=== PATIENT | female | born 1930 | race Caucasian/White ===

== ENCOUNTER 2018-07-28 09:52 | Observation (INO) ==
--- NOTE | 2018-07-28 10:28 | ERNOTE ---
Dizziness ER Record Date of Service: 07/28/18 Presenting Symptoms: dizziness Time Seen by Provider: 07/28/18 10:27 Source: patient, RN notes reviewed Exam Limitations: clinical condition Immunizations: IMMUNIZATION HX Immunizations Up to Date No History of Influenza Vaccine Yes Hx Pneumococcal Vaccination Yes Allergies/Adverse Reactions: Allergies Allergy/AdvReac Type Severity Reaction Status Date / Time ferrous sulfate Allergy Unknown Verified 07/28/18 09:59 amlodipine besylate AdvReac Mild TIRED Verified 07/28/18 09:59 [From Norvasc] aspirin AdvReac Mild FEELS LIKE Verified 07/28/18 09:59 "SHADE PULLED DOWN OVER EYES" diltiazem AdvReac Mild HOT Verified 07/28/18 09:59 FLASHES, DIZZY doxycycline AdvReac Mild Headache Verified 07/28/18 09:59 hydralazine [Hydralazine] AdvReac Mild "FELT BAD" Verified 07/28/18 09:59 hydrochlorothiazide AdvReac Mild "SICK" Verified 07/28/18 09:59 losartan potassium AdvReac Mild Headache Verified 07/28/18 09:59 [From Hyzaar] minoxidil AdvReac Mild "FELT REAL Verified 07/28/18 09:59 BAD" nabumetone [From Relafen] AdvReac Mild Nausea Verified 07/28/18 09:59 ondansetron HCl AdvReac Mild AKATHISIA Verified 07/28/18 09:59 [From Zofran (as hydrochloride)] oxaprozin [From Daypro] AdvReac Mild "ILL" Verified 07/28/18 09:59 promethazine HCl AdvReac Mild AKATHISIA Verified 07/28/18 09:59 [From Phenergan] SER-AP-ES AdvReac Mild "ILL" Uncoded 07/28/18 09:59 Home Medications: HOME MEDICATIONS Calcium Carbonate [Tums] 500 mg PO DAILY #30 tab.chew 12/24/14 [Last Taken Unknown] Furosemide [Lasix] 40 mg PO DAILY #30 tab 12/24/14 [Last Taken Unknown] Irbesartan [Avapro] 300 mg PO HS #30 tab 12/24/14 [Last Taken 05/20/15 07:00] Levothyroxine Sodium [Synthroid] 50 mcg PO DAILY #30 tab 12/24/14 [Last Taken Unknown] Metoprolol Tartrate [Lopressor] 100 mg PO BID #60 tab 12/24/14 [Last Taken 06/03/15 07:00] glipiZIDE [Glipizide] 10 mg PO DAILY #30 tab 12/24/14 [Last Taken Unknown] Ascorbic Acid [Vitamin C] 500 mg PO DAILY 05/10/15 [Last Taken Unknown] Blood Sugar Diagnostic, Drum [Accu-Chek Compact] 1 ea MC DAILY 05/10/15 [Last Taken Unknown] Calcium/Cranberry Fruit [Cranberry 400 mg Caplet] 2 ea PO DAILY 05/10/15 [Last Taken Unknown] Cholecalciferol (Vitamin D3) [Vitamin D3] 6,000 unit PO DAILY 05/10/15 [Last Taken Unknown] Cinnamon Bark [Cinnamon] 4,000 mg PO DAILY 05/10/15 [Last Taken Unknown] Fexofenadine/Pseudoephedrine [Angella-D 24 Hour Tablet] 1 ea PO DAILY 05/10/15 [Last Taken Unknown] Garlic 200 mg PO DAILY 05/10/15 [Last Taken Unknown] Glucosamine/D3/Boswellia Veronica [Osteo Bi-Flex Caplet] 2 ea PO DAILY 05/10/15 [Last Taken Unknown] Melatonin [Melatin] 3 mg PO HS 05/10/15 [Last Taken Unknown] Multivitamins [Multivitamin Naldo] 1 cap PO DAILY 05/10/15 [Last Taken Unknown] Simvastatin [Zocor] 40 mg PO DAILY 05/10/15 [Last Taken Unknown] Vitamin E 400 unit PO DAILY 05/10/15 [Last Taken Unknown] blood sugar diagnostic strips See Dose Instructions .ROUTE .MEDSUPPLY #100 ea 04/27/18 [Last Taken Unknown] lancets 28 gauge See Dose Instructions .ROUTE .MEDSUPPLY #100 ea 04/27/18 [Last Taken Unknown] prazosin 5 mg capsule 10 mg PO BID #360 cap 06/25/18 [Last Taken Unknown] Glucosamine/D3/Boswellia Veronica [Osteo Bi-Flex Tablet] 2 ea PO DAILY 07/28/18 [Last Taken Unknown] - History of Present Illness Narrative: Katie is a 88 year old female brought to the ED by ambulance from home for severe dizziness. This began abruptly at 0100 when she was putting sheets on her bed. She was unable to lay down due to the dizziness and sat on the side of her bed all night. She also started vomiting at some point during the night. She was given Zofran IV by EMS without improvement. She reports having vertigo even at rest. Her blood pressure was 224/92 on arrival. She has not been able to take any of her home medications due to the vomiting. She reports feeling fine yesterday. Date (Duration): 07/28/18 Time (Timing): 01:00 Timing and Duration: sudden onset, still present, constant Severity: max: severe Severity: currently: severe Associated Symptoms: Present: nausea, vomiting. Absent: ringing/roaring in ear, ear pain, headache Sense of movement: Present: spinning Decreased ability to stand/walk:: Present: cannot walk Usually:: Present: walks w/o assistance Modifying Factors - (Improves): Reports: nothing Modifying Factors - (Worsens): Reports: nothing Prior Treament: Denies: recently seen, similar symptoms before Review of Systems - Review of Systems Constitutional: Absent: recent illness, fever, chills EYE: Absent: eye pain, vision changes ENT: Absent: ear pain, nose congestion, sore throat Respiratory: Absent: shortness of breath, cough Cardiology: Present: edema - lower legs and feet after being dependent all night. Absent: chest pain, palpitations, syncope Gastrointestinal/Abdominal: Present: nausea, vomiting. Absent: diarrhea, abdominal pain Genitourinary: Present: no symptoms reported Musculoskeletal: Absent: muscle pain, neck pain Skin: Absent: rash, lesions Neurological: Present: dizziness/light-headedness. Absent: headache Endocrine: Present: no symptoms reported Hematologic/Lymphatic: Absent: easy bruising, easy bleeding Psych: Present: no symptoms reported Medical History (Last Reviewed 07/28/18 @ 13:02 by Gali Dunaway NP) Tremor (Chronic) Onset Date: ~07/07/10 Hypothyroidism (Chronic) Onset Date: Unknown Type 2 diabetes mellitus without complications (Chronic) Onset Date: Unknown Mitral regurgitation (Chronic) Onset Date: 07/14/11 Mild to moderate mitral regurgitation per ECHO obtained on 07/14/2011. CHF (congestive heart failure) (Chronic) Onset Date: 07/17/11 Arthritis Onset Date: Unknown Essential (primary) hypertension Onset Date: Unknown White coat syndrome with hypertension Onset Date: Unknown Hyperlipidemia Onset Date: Unknown Eczema Onset Date: Unknown GERD (gastroesophageal reflux disease) Onset Date: Unknown Surgical History: Surgical History (Last Reviewed 07/28/18 @ 13:02 by Gali Dunaway NP) History of breast biopsy Onset Date: ~1963 History of cataract surgery Onset Date: ~2014 left: 04/2015 Dr. Hurley right: 06/2015 Dr. Hurley History of colonoscopy Onset Date: ~200810/08/20042006 History of dilation and curettage Onset Date: ~1974 1965, 1974 positive endometrial biopsy History of esophagogastroduodenoscopy (EGD) Onset Date: 10/08/04 History of knee joint replacement Onset Date: Unknown Family History: Family History (Last Reviewed 07/28/18 @ 13:02 by Gali Dunaway NP) Sister Hypertension Mother Hypertension Father Hypertension Brother Hypertension Daughter , age 56 Colon cancer Social History: Preferred Language French Do you have any christianity or No cultural preference? Smoking Status Never smoker Have you smoked in the past 12 No months Do you dip or chew tobacco No Abuse History No History of abuse Psych History No pertinent hx Alcohol Use none Drug Use none (Last Updated 02/24/18 @ 22:03 by SARAH Bahena) No Social History Section defined Physical Exam - Physical Exam General Appearance: Present: wd/wn, alert, moderate distress Head Exam: Present: normal inspection, no evidence of injury Eye Exam: Normal inspection: bilateral Ears, Nose, Throat: Present: normal ENT inspection, normal pharynx Neck: Present: normal inspection, nontender, supple Respiratory: Present: no respiratory distress, normal breath sounds, no accessory muscle use, lungs clear Cardiovascular/Chest: Present: regular rate, rhythm, no murmur, normal peripheral pulses Peripheral Pulses: N=norm/S=strong/W=weak/B=bound/A=absent: Dorsalis-pedis (R): Normal, Dorsalis-pedis (L): Normal Gastrointestinal/Abdominal: Present: nontender, nondistended, soft Extremity Exam: Present: non-tender, pedal edema - mild Neurological Exam: Present: alert, oriented, normal mood/affect, no motor/sensory deficits Skin Exam: Present: warm/dry, pallor Progress - Results and Orders Patient's Lab Results:: I have reviewed the patient's lab results. - Vital Signs Patient's Vital Signs:: I have reviewed the patient's vital signs. Vital Signs: Vital Signs 07/28/18 09:53 07/28/18 10:01 Temperature 36.4 C Pulse Rate 85 85 Respiratory Rate 25 H Blood Pressure 224/92 H O2 Sat by Pulse Oximetry 96 - EKG EKG: NSR, nonspecific ST T wave changes EKG read: Reviewed by me - CT/Ultrasound CT/Ultrasound Narrative: Head CT demonstrates no acute intracranial process - Progress/Reassessment Chief Complaint: Dizziness Progress:: Improved Plan - Plan Plan: Vertigo and vomiting persisted after Zofran given by EMS. Compazine was given with relief of the vomiting and improvement in the vertigo. Her elevated blood pressure persisted and Labatolol 10 mg was given IV. Her BP is currently 164/70. It is unclear if the vertigo caused the elevated BP, or if the BP elevation lead to the vertigo. Dr. Novoa is the patient's PCP. He was contacted and will admit the patient to observation status for further monitoring. Departure Clinical Impression: Vertigo Vomiting Qualifiers: Vomiting type: unspecified Vomiting Intractability: non-intractable Nausea presence: with nausea Qualified Code(s): R11.2 - Nausea with vomiting, unspecified Hypertension Qualifiers: Hypertension type: unspecified Qualified Code(s): I10 - Essential (primary) hypertension - Departure Disposition: Still a patient Condition: Stable Referrals: Bishop Novoa DO [Primary Care Provider] -
[2018-07-28] MEDS ORDERED: PROCHLORPERAZINE EDISYLATE 5 MG/ML VIAL IV ONE (10:32)
[2018-07-28 10:50] LABS: Hematocrit 35.2 % (37.0-47.0); Hemoglobin 11.7 gm/dL (12.5-16.0); Mean Cell Volume 94.6 fl (78-100); Mean Corpuscular Hemoglobin 31.5 pg (27-31); Mean Corpuscular Hgb Conc 33.2 g/dl (32-36); Mean Platelet Volume 11.1 fl (8-12.5); Neutrophil # 9.3 K/mm3 (1.3-6.0); Neutrophil % 91.9 % (42-75.0); Platelet Count 151 K/mm3 (150-450); Red Blood Count 3.72 M/mm3 (4.2-5.4); Red Cell Distribution Width 12.3 % (11.5-14.0); White Blood Count 10.2 K/mm3 (4.0-10.5)
[2018-07-28 11:11] LABS: Albumin * 3.6 gm/dl (3.4-5.0); Anion Gap 14.5 mmol/L (6.8-13.8); Bilirubin, Total 0.6 mg/dL (0.0-1.1); Ca. Corrected For Albumin 10.3 mg/dL (8.4-10.2); Calcium * 10.3 mg/dL (7.9-10.9); Carbon Dioxide 27.6 mmol/L (24-32.6); Potassium 4.1 mmol/L (3.4-4.6); Total Protein 7.3 gm/dL (6.2-8.2)
[2018-07-28] MEDS ORDERED: NORMAL SALINE 1,000 ML IV ONE (11:13)
[2018-07-28] MEDS ORDERED: LABETALOL HCL 5 MG/ML VIAL IV ONE (11:13)
[2018-07-28 14:19] LABS: Urine Bilirubin Negative (NEGATIVE); Urine Ketone 15 mg/dL (NEGATIVE); Urine Nitrite Negative (NEGATIVE); Urine Protein 100 mg/dL (NEGATIVE); Urine Specific Gravity 1.025 SP.GR. (1.005-1.010); Urine Urobilinogen Normal (NORMAL)
[2018-07-28 14:35] LABS: Urine Appearance Clear (CLEAR); Urine Bacteria TRACE; Urine Blood 5 /ul (NEGATIVE); Urine Color Yellow; Urine RBC TRACE /hpf (0-5); Urine WBC None Seen /hpf (0-5)
--- NOTE | 2018-07-28 21:14 | HP ---
Chief Complaint - Chief Complaint Date of Service: 07/28/18 Time of Service: 21:13 Chief Complaint: Vertigo History of Present Illness: Katie woke up this morning with extreme vertigo. She sat up on her bed and refused to move for hours because she was scared of getting sick. EMS was contacted and they had to carry her as she was unable to walk due to the vertigo. She was brought to [facility] ER For evaluation. She continued to have severe vertigo until given compazine and labetolol for severe hypertension with systolic >200. Vertigo resolved and blood pressure improved. She felt uneasy going home and the ER contacted medicine to observe patient for monitoring of blood pressure and return of vertigo. Katie denies any recent change in activity, medications. or diet. Medical History (Last Reviewed 07/28/18 @ 15:33 by April Kimble RN) Tremor (Chronic) Onset Date: ~07/07/10 Hypothyroidism (Chronic) Onset Date: Unknown Type 2 diabetes mellitus without complications (Chronic) Onset Date: Unknown Mitral regurgitation (Chronic) Onset Date: 07/14/11 Mild to moderate mitral regurgitation per ECHO obtained on 07/14/2011. CHF (congestive heart failure) (Chronic) Onset Date: 07/17/11 Arthritis Onset Date: Unknown Essential (primary) hypertension Onset Date: Unknown White coat syndrome with hypertension Onset Date: Unknown Hyperlipidemia Onset Date: Unknown Eczema Onset Date: Unknown GERD (gastroesophageal reflux disease) Onset Date: Unknown Surgical History: Surgical History (Last Reviewed 07/28/18 @ 15:33 by April Kimble RN) History of breast biopsy Onset Date: ~1963 History of cataract surgery Onset Date: ~2014 left: 04/2015 Dr. Hurley right: 06/2015 Dr. Hurley History of colonoscopy Onset Date: ~200810/08/20042006 History of dilation and curettage Onset Date: ~1974 1965, 1974 positive endometrial biopsy History of esophagogastroduodenoscopy (EGD) Onset Date: 10/08/04 History of knee joint replacement Onset Date: Unknown Family History: Family History (Last Reviewed 07/28/18 @ 15:33 by April Kimble RN) Sister Hypertension Mother Hypertension Father Hypertension Brother Hypertension Daughter , age 56 Colon cancer Social History: Patient Lives/Resources Home Utilized Occupation retired Preferred Language Hungarian Do you have any baptist or Yes: Cheondoism cultural preference? Smoking Status Never smoker Have you smoked in the past 12 No months Do you dip or chew tobacco No Abuse History No History of abuse Psych History No pertinent hx Alcohol Use none Drug Use none (Last Updated 02/24/18 @ 22:03 by SARAH Bahena) No Social History Section defined Review Of Systems (GEN) - Review of Systems Generalized/Overall Review: Absent: Weakness, Chills, Fever EENTM: Present: Other - Vertigo Respiratory: Absent: Cough, Shortness of Breath Cardiac: Absent: Chest Pain, Edema Abdominal: Present: Nausea. Absent: Vomiting, Abdominal Pain, Constipation, Diarrhea Genitourinary: Present: No Symptoms Reported Musculoskeletal: Present: No Symptoms Reported Neurological: Present: No Symptoms Reported Skin: Present: No Symptoms Reported Immunizations: IMMUNIZATION HX Immunizations Up to Date No History of Influenza Vaccine Yes Hx Pneumococcal Vaccination Yes Allergies/Adverse Reactions: Allergies Allergy/AdvReac Type Severity Reaction Status Date / Time ferrous sulfate Allergy Unknown Verified 08/03/18 10:19 amlodipine besylate AdvReac Mild TIRED Verified 08/03/18 10:19 [From Norvasc] aspirin AdvReac Mild FEELS LIKE Verified 08/03/18 10:19 "SHADE PULLED DOWN OVER EYES" diltiazem AdvReac Mild HOT Verified 08/03/18 10:19 FLASHES, DIZZY doxycycline AdvReac Mild Headache Verified 08/03/18 10:19 hydralazine [Hydralazine] AdvReac Mild "FELT BAD" Verified 08/03/18 10:19 hydrochlorothiazide AdvReac Mild "SICK" Verified 08/03/18 10:19 losartan potassium AdvReac Mild Headache Verified 08/03/18 10:19 [From Hyzaar] minoxidil AdvReac Mild "FELT REAL Verified 08/03/18 10:19 BAD" nabumetone [From Relafen] AdvReac Mild Nausea Verified 08/03/18 10:19 ondansetron HCl AdvReac Mild AKATHISIA Verified 08/03/18 10:19 [From Zofran (as hydrochloride)] oxaprozin [From Daypro] AdvReac Mild "ILL" Verified 08/03/18 10:19 promethazine HCl AdvReac Mild AKATHISIA Verified 08/03/18 10:19 [From Phenergan] SER-AP-ES AdvReac Mild "ILL" Uncoded 07/28/18 09:59 Home Medications: HOME MEDICATIONS Calcium Carbonate [Tums] 500 mg PO DAILY #30 tab.chew 12/24/14 [Last Taken Unknown] Furosemide [Lasix] 40 mg PO DAILY #30 tab 12/24/14 [Last Taken Unknown] Irbesartan [Avapro] 300 mg PO HS #30 tab 12/24/14 [Last Taken 05/20/15 07:00] Levothyroxine Sodium [Synthroid] 50 mcg PO DAILY #30 tab 12/24/14 [Last Taken Unknown] Metoprolol Tartrate [Lopressor] 100 mg PO BID #60 tab 12/24/14 [Last Taken 06/03/15 07:00] glipiZIDE [Glipizide] 10 mg PO DAILY #30 tab 12/24/14 [Last Taken Unknown] Ascorbic Acid [Vitamin C] 500 mg PO DAILY 05/10/15 [Last Taken Unknown] Blood Sugar Diagnostic, Drum [Accu-Chek Compact Plus Strips] 1 ea MC DAILY 05/10/15 [Last Taken Unknown] Calcium/Cranberry Fruit [Cranberry 400 mg Caplet] 2 ea PO DAILY 05/10/15 [Last Taken Unknown] Cholecalciferol (Vitamin D3) [Vitamin D3] 6,000 unit PO DAILY 05/10/15 [Last Taken Unknown] Cinnamon Bark [Cinnamon] 4,000 mg PO DAILY 05/10/15 [Last Taken Unknown] Fexofenadine/Pseudoephedrine [Angella-D 24 Hour Tablet] 1 ea PO DAILY 05/10/15 [Last Taken Unknown] Garlic 200 mg PO DAILY 05/10/15 [Last Taken Unknown] Glucosamine/D3/Boswellia Veronica [Osteo Bi-Flex Caplet] 2 ea PO DAILY 05/10/15 [Last Taken Unknown] Melatonin [Melatin] 3 mg PO HS 05/10/15 [Last Taken Unknown] Multivitamins [Multivitamin Naldo] 1 cap PO DAILY 05/10/15 [Last Taken Unknown] Simvastatin [Zocor] 40 mg PO DAILY 05/10/15 [Last Taken Unknown] Vitamin E 400 unit PO DAILY 05/10/15 [Last Taken Unknown] blood sugar diagnostic strips See Dose Instructions .ROUTE .MEDSUPPLY #100 ea 04/27/18 [Last Taken Unknown] lancets 28 gauge See Dose Instructions .ROUTE .MEDSUPPLY #100 ea 04/27/18 [Last Taken Unknown] prazosin 5 mg capsule 10 mg PO BID #360 cap 06/25/18 [Last Taken Unknown] Glucosamine/D3/Boswellia Veronica [Osteo Bi-Flex Tablet] 2 ea PO DAILY 07/28/18 [Last Taken Unknown] Metoprolol Tartrate [Lopressor] 100 mg PO BID tab 07/29/18 [Last Taken Unknown] fluticasone 50 mcg/actuation nasal spray,suspension 1 spray PATRICIA Q12H PRN #16 g 08/03/18 [Last Taken Unknown] Exam - Exam Vital Signs: Vital Signs - Last Taken Temp 37.0 C 07/28/18 15:25 Pulse 94 07/28/18 15:25 Resp 20 07/28/18 15:25 BP 154/63 H 07/28/18 15:25 Pulse Ox 100 07/28/18 15:25 Constitutional: Present: Alert, Oriented x3, Cooperative ENT Exam: Present: hearing grossly normal Eye Exam: bilateral eye: normal inspection Neck: Present: normal inspection Respiratory: Present: lungs clear, normal breath sounds Cardiovascular/Chest: Present: regular rate, rhythm, no murmur Abdomen: Present: Normal bowel sounds, soft, nontender, nondistended Skin Exam: Present: normal color, warm/dry, no cyanosis Appearance: Present: appropriate appearance, appropriate insight Eye contact: Present: cooperative, good eye contact, normal speech Thoughts: Present: normal thought pattern, no apparent hallucination Diagnostic Studies: Abnormal Lab Results 07/28/18 07/28/18 07/28/18 Range/Units 10:40 10:40 14:15 RBC 3.72 L (4.2-5.4) M/mm3 Hgb 11.7 L (12.5-16.0) gm/dL Hct 35.2 L (37.0-47.0) % MCH 31.5 H (27-31) pg Immature Gran % (Auto) 0.50 H (0.001-0.429) % Immature Gran # (Auto) 0.05 H (0.000-0.0310) K/mm3 Neutrophils % 91.9 H (42-75.0) % Lymphocytes % 4.6 L (20-51) % Neutrophils # 9.3 H (1.3-6.0) K/mm3 Lymphocytes # 0.47 L (1.5-3.5) k/mm3 Sodium 143 H (132-142) mmol/L Plasma Sodium 146 H (130-142) mmol/L Anion Gap 14.5 H (6.8-13.8) mmol/L BUN 35 H (3-23) mg/dL Est GFR (Non-Af Amer) 43 L (60-130) mL/min BUN/Creatinine Ratio 28.0 H (9.0-21.6) Random Glucose 289 H (70-110) mg/dL Calcium Adj for Albumin 10.3 H (8.4-10.2) mg/dL ALT 15 L (19-67) U/L B-Natriuretic Peptide 4105 H (5-550) pg/mL Urine Protein 100 H (NEGATIVE) mg/dL Urine Glucose (UA) 250 H (NEGATIVE) mg/dL Urine Blood 5 H (NEGATIVE) /ul Prot Sulfosalicylic Acd 4+ H (0) mg/dL Laboratory Results WBC 10.2 K/mm3 (4.0-10.5) 07/28/18 10:40 RBC 3.72 M/mm3 (4.2-5.4) L 07/28/18 10:40 Hgb 11.7 gm/dL (12.5-16.0) L 07/28/18 10:40 Hct 35.2 % (37.0-47.0) L 07/28/18 10:40 MCV 94.6 fl (78-100) 07/28/18 10:40 MCH 31.5 pg (27-31) H 07/28/18 10:40 MCHC 33.2 g/dl (32-36) 07/28/18 10:40 RDW 12.3 % (11.5-14.0) 07/28/18 10:40 Plt Count 151 K/mm3 (150-450) 07/28/18 10:40 MPV 11.1 fl (8-12.5) 07/28/18 10:40 Immature Gran % (Auto) 0.50 % (0.001-0.429) H 07/28/18 10:40 Immature Gran # (Auto) 0.05 K/mm3 (0.000-0.0310) H 07/28/18 10:40 Neutrophils % 91.9 % (42-75.0) H 07/28/18 10:40 Lymphocytes % 4.6 % (20-51) L 07/28/18 10:40 Monocytes % 2.8 % (0.0-9) 07/28/18 10:40 Eosinophils % 0.0 % (0.0-3.0) 07/28/18 10:40 Basophils % 0.2 % (0.0-1.0) 07/28/18 10:40 Nucleated RBC % 0.0 k/mm3 (0-1) 07/28/18 10:40 Neutrophils # 9.3 K/mm3 (1.3-6.0) H 07/28/18 10:40 Lymphocytes # 0.47 k/mm3 (1.5-3.5) L 07/28/18 10:40 Monocytes # 0.3 k/mm3 (0.0-1.0) 07/28/18 10:40 Eosinophils # 0.0 k/mm3 (0.0-0.7) 07/28/18 10:40 Absolute Basophils 0.0 k/mm3 (0.0-0.1) 07/28/18 10:40 Sodium 143 mmol/L (132-142) H 07/28/18 10:40 Plasma Sodium 146 mmol/L (130-142) H 07/28/18 10:40 Potassium 4.1 mmol/L (3.4-4.6) 07/28/18 10:40 Chloride 105 mmol/L (97-106) 07/28/18 10:40 Carbon Dioxide 27.6 mmol/L (24-32.6) 07/28/18 10:40 Anion Gap 14.5 mmol/L (6.8-13.8) H 07/28/18 10:40 BUN 35 mg/dL (3-23) H 07/28/18 10:40 Creatinine 1.25 mg/dL (0.4-1.4) 07/28/18 10:40 Est GFR (Non-Af Amer) 43 mL/min (60-130) L 07/28/18 10:40 BUN/Creatinine Ratio 28.0 (9.0-21.6) H 07/28/18 10:40 Random Glucose 289 mg/dL (70-110) H 07/28/18 10:40 Calcium 10.3 mg/dL (7.9-10.9) 07/28/18 10:40 Calcium Adj for Albumin 10.3 mg/dL (8.4-10.2) H 07/28/18 10:40 Total Bilirubin 0.6 mg/dL (0.0-1.1) 07/28/18 10:40 AST 23 U/L (0-48) 07/28/18 10:40 ALT 15 U/L (19-67) L 07/28/18 10:40 Alkaline Phosphatase 80 U/L (50-170) 07/28/18 10:40 Troponin I Less than 0.017 ng/mL (0.00-0.10) 07/28/18 10:40 B-Natriuretic Peptide 4105 pg/mL (5-550) H 07/28/18 10:40 Total Protein 7.3 gm/dL (6.2-8.2) 07/28/18 10:40 Albumin 3.6 gm/dl (3.4-5.0) 07/28/18 10:40 Urine Color Yellow 07/28/18 14:15 Urine Appearance Clear (CLEAR) 07/28/18 14:15 Urine pH 6.0 pH (5.0-7.0) 07/28/18 14:15 Ur Specific [place] 1.025 SP.GR. (1.005-1.010) 07/28/18 14:15 Urine Protein 100 mg/dL (NEGATIVE) H 07/28/18 14:15 Urine Glucose (UA) 250 mg/dL (NEGATIVE) H 07/28/18 14:15 Urine Ketones 15 mg/dL (NEGATIVE) 07/28/18 14:15 Urine Blood 5 /ul (NEGATIVE) H 07/28/18 14:15 Urine Nitrate Negative (NEGATIVE) 07/28/18 14:15 Urine Bilirubin Negative mg/dl (NEGATIVE) 07/28/18 14:15 Prot Sulfosalicylic Acd 4+ mg/dL (0) H 07/28/18 14:15 Urine Urobilinogen Normal EU/dl (NORMAL) 07/28/18 14:15 Ur Leukocyte Esterase Negative /ul (NEGATIVE) 07/28/18 14:15 Urine RBC Trace /hpf (0-5) 07/28/18 14:15 Urine WBC None seen /hpf (0-5) 07/28/18 14:15 Ur Epithelial Cells Trace /hpf (0-5) 07/28/18 14:15 Urine Bacteria Trace (NONE) 07/28/18 14:15 Urine Culture Comments No culture indicated 07/28/18 14:15 Assessment/Plan - Narrative Narrative: Katie is an 88 yo female with sudden unexplained vertigo. It is now resolved with compazine. Suspect labyrinthitis and blood pressure was secondarily elevated. Will continue home medications which has previously had blood pressure well controlled. Will monitor neuro status. Will admit to observation and if no further occurances plan to discharge to home tomorrow. - Assessment/Plan (1) Vertigo Problem: Acute (2) Accelerated hypertension Problem: Acute
[2018-07-28] MEDS: PRAZOSIN HCL 5 MG CAPSULE PO SCH (22:50)
[2018-07-28] MEDS: METOPROLOL TARTRATE 100 MG TABLET PO SCH (22:50)
[2018-07-29] MEDS: METOPROLOL TARTRATE 100 MG TABLET PO SCH (09:58)
[2018-07-29] MEDS: PRAZOSIN HCL 5 MG CAPSULE PO SCH (10:02)
[2018-07-29] MEDS ORDERED: LEVOTHYROXINE SODIUM 50 MCG TABLET PO SCH (10:45)
[2018-07-29] MEDS ORDERED: FUROSEMIDE 40 MG TABLET PO SCH (10:45)
[2018-07-29] MEDS ORDERED: CALCIUM CARBONATE 500 MG TAB.CHEW PO SCH (10:45)
[2018-07-29] MEDS ORDERED: SIMVASTATIN 40 MG TABLET PO SCH (10:45)
[2018-07-29] MEDS ORDERED: glipiZIDE 10 MG TABLET PO SCH (10:45)
[2018-07-29] MEDS ORDERED: METOPROLOL TARTRATE 100 MG TABLET PO SCH (10:45)
[2018-07-29] MEDS ORDERED: PRAZOSIN HCL 5 MG CAPSULE PO ONE (11:30)
--- NOTE | 2018-07-29 11:49 | DS ---
(1) Vertigo Problem: Acute (2) Hypertension Problem: Chronic Qualifiers: Hypertension type: unspecified Qualified Code(s): I10 - Essential (primary) hypertension Description of Stay: Katie is an 88 yo female that was admitted for severe vertigo. It was resolved in the ER with compazine and her severely elevate blood pressure >200 was treated with IV labetolol. From that point on she felt back to normal and had no further episodes of vertigo. She reports her blood pressures at home have been good. I believe blood pressure was elevated due to the vertigo and not the other way around. She was continued on home medications and did well. She will be discharged to home. There are no changes to her medications. She will follow up with me in 1-2 weeks. Procedures Performed: none Results and Findings: Lab Pending Results 07/28/18 10:40: WBC 10.2, RBC 3.72 L, Hgb 11.7 L, Hct 35.2 L, MCV 94.6, MCH 31.5 H, MCHC 33.2, RDW 12.3, Plt Count 151, MPV 11.1, Immature Gran % (Auto) 0.50 H, Immature Gran # (Auto) 0.05 H, Neutrophils % 91.9 H, Lymphocytes % 4.6 L, Monocytes % 2.8, Eosinophils % 0.0, Basophils % 0.2, Nucleated RBC % 0.0, Neutrophils # 9.3 H, Lymphocytes # 0.47 L, Monocytes # 0.3, Eosinophils # 0.0, Absolute Basophils 0.0 07/28/18 10:40: Sodium 143 H, Plasma Sodium 146 H, Potassium 4.1, Chloride 105, Carbon Dioxide 27.6, Anion Gap 14.5 H, BUN 35 H, Creatinine 1.25, Est GFR (Non- Af Amer) 43 L, BUN/Creatinine Ratio 28.0 H, Random Glucose 289 H, Calcium 10.3, Calcium Adj for Albumin 10.3 H, Total Bilirubin 0.6, AST 23, ALT 15 L, Alkaline Phosphatase 80, B-Natriuretic Peptide 4105 H, Total Protein 7.3, Albumin 3.6 07/28/18 10:40: Troponin I Less than 0.017 07/28/18 14:15: Urine Color Yellow, Urine Appearance Clear, Urine pH 6.0, Ur Specific Hines 1.025, Urine Protein 100 H, Urine Glucose (UA) 250 H, Urine Ketones 15, Urine Blood 5 H, Urine Nitrate Negative, Urine Bilirubin Negative, Prot Sulfosalicylic Acd 4+ H, Urine Urobilinogen Normal, Ur Leukocyte Esterase Negative, Urine RBC Trace, Urine WBC None seen, Ur Epithelial Cells Trace, Urine Bacteria Trace, Urine Culture Comments No culture indicated Discharge Location: Home Disposition: Home self-care Condition: Good Discharge Activity: Activity as tolerated Discharge Diet: Low salt Referrals: Bishop Novoa DO [Primary Care Provider] - (1-2 weeks) Problem Oriented Discharge Instructions to Patient/Family: Vertigo, [place]ru[place]-ot-[place]evt Additional Patient Instructions (free text): -Please make TCM appointment unless senior living discharge. Thank you! Luz @ [phone]. Complete Home Medications List: Complete Home Medication List: Calcium Carbonate [Tums] 500 mg PO DAILY #30 tab.chew 12/24/14 Furosemide [Lasix] 40 mg PO DAILY #30 tab 12/24/14 Irbesartan [Avapro] 300 mg PO HS #30 tab 12/24/14 Levothyroxine Sodium [Synthroid] 50 mcg PO DAILY #30 tab 12/24/14 Metoprolol Tartrate [Lopressor] 100 mg PO BID #60 tab 12/24/14 glipiZIDE [Glipizide] 10 mg PO DAILY #30 tab 12/24/14 Ascorbic Acid [Vitamin C] 500 mg PO DAILY 05/10/15 Blood Sugar Diagnostic, Drum [Accu-Chek Compact] 1 ea MC DAILY 05/10/15 Calcium/Cranberry Fruit [Cranberry 400 mg Caplet] 2 ea PO DAILY 05/10/15 Cholecalciferol (Vitamin D3) [Vitamin D3] 6,000 unit PO DAILY 05/10/15 Cinnamon Bark [Cinnamon] 4,000 mg PO DAILY 05/10/15 Fexofenadine/Pseudoephedrine [Angella-D 24 Hour Tablet] 1 ea PO DAILY 05/10/15 Garlic 200 mg PO DAILY 05/10/15 Glucosamine/D3/Boswellia Veronica [Osteo Bi-Flex Caplet] 2 ea PO DAILY 05/10/15 Melatonin [Melatin] 3 mg PO HS 05/10/15 Multivitamins [Multivitamin Naldo] 1 cap PO DAILY 05/10/15 Simvastatin [Zocor] 40 mg PO DAILY 05/10/15 Vitamin E 400 unit PO DAILY 05/10/15 blood sugar diagnostic strips See Dose Instructions .ROUTE .MEDSUPPLY #100 ea 04/27/18 lancets 28 gauge See Dose Instructions .ROUTE .MEDSUPPLY #100 ea 04/27/18 prazosin 5 mg capsule 10 mg PO BID #360 cap 06/25/18 Glucosamine/D3/Boswellia Veronica [Osteo Bi-Flex Tablet] 2 ea PO DAILY 07/28/18
[2018-07-29 12:46] VITALS: BP 192/83
[2018-07-29] MEDS ORDERED: IRBESARTAN 300 MG PO SCH (21:00)
[2018-07-29] MEDS ORDERED: MELATONIN 3,000 MCG TABLET PO SCH (21:00)
[2018-07-29] MEDS ORDERED: PRAZOSIN HCL 5 MG CAPSULE PO SCH (21:00)
== END 2018-07-29 13:25 | disposition home or self-care (01) ==
LOC: MS 09:52 → ER 09:52 → MS 14:13
PROVIDERS: ADMIT Family Medicine; ATTEND Family Medicine
CPT/HCPCS: 36415; 70450; 80053; 81001; 83519; 83880; 84484; 85025; 93005; 94660; 96365; 96375; 99285; G0378

== ENCOUNTER 2021-01-01 10:01 | Observation (INO) ==
[2021-01-01] MEDS ORDERED: MECLIZINE HCL 25 MG TABLET PO ONE ×2 (11:21→12:06)
[2021-01-01 11:26] LABS: Hematocrit 31.9 % (37.0-47.0); Hemoglobin 10.4 gm/dL (12.5-16.0); Mean Cell Volume 98.8 fl (78-100); Mean Corpuscular Hemoglobin 32.2 pg (27-31); Mean Corpuscular Hgb Conc 32.6 g/dl (32-36); Mean Platelet Volume 11.8 fl (8-12.5); Neutrophil # 6.3 K/mm3 (1.3-6.0); Neutrophil % 85.1 % (42-75.0); Platelet Count 185 K/mm3 (150-450); Red Blood Count 3.23 M/mm3 (4.2-5.4); Red Cell Distribution Width 12.2 % (11.5-14.0); White Blood Count 7.4 K/mm3 (4.0-10.5)
[2021-01-01 11:27] LABS: Urine Bilirubin Negative (NEGATIVE); Urine Blood Negative /ul (NEGATIVE); Urine Ketone Negative (NEGATIVE); Urine Nitrite Negative (NEGATIVE); Urine Protein 30 mg/dL (NEGATIVE); Urine Specific Gravity 1.015 SP.GR. (1.005-1.010); Urine Urobilinogen Normal (NORMAL); Urine pH 7.5 pH (5.0-7.0)
[2021-01-01] MEDS ORDERED: LABETALOL HCL 5 MG/ML VIAL IV ONE (11:28)
[2021-01-01 11:36] LABS: Urine Appearance Clear (CLEAR); Urine Bacteria None Seen; Urine Color Yellow; Urine RBC None Seen /hpf (0-5); Urine WBC None Seen /hpf (0-5)
[2021-01-01 11:46] LABS: Troponin I Less than 0.017 ng/mL (0.00-0.10)
[2021-01-01 11:49] LABS: ALT 20 U/L (19-67); AST 21 U/L (0-48); Albumin * 3.6 gm/dl (3.4-5.0); Alkaline Phosphatase * 89 U/L (50-170); Anion Gap 13.8 mmol/L (6.8-13.8); BNP * 3002 pg/mL (5-550); BUN/Creatinine Ratio 41.7 (9.0-21.6); Bilirubin, Total 0.4 mg/dL (0.0-1.1); Blood Urea Nitrogen 70 mg/dL (3-23); Ca. Corrected For Albumin 10.2 mg/dL (8.4-10.2); Calcium * 10.2 mg/dL (7.9-10.9); Carbon Dioxide 28.9 mmol/L (24-32.6); Chloride 97 mmol/L (97-106); Glucose * 363 mg/dL (70-110); Potassium 4.7 mmol/L (3.4-4.6); Sodium 135 mmol/L (132-142); TSH * 3.377 uIU/mL (0.358-3.74); Total Protein 7.7 gm/dL (6.2-8.2)
--- NOTE | 2021-01-01 13:43 | ERNOTE ---
Dizziness ER Record Date of Service: 01/01/21 Presenting Symptoms: dizziness, other - not feeling well Time Seen by Provider: 01/01/21 10:30 Source: patient, family Exam Limitations: no limitations Immunizations: IMMUNIZATION HX Immunizations Up to Date No History of Influenza Vaccine Yes Hx Pneumococcal Vaccination Yes Allergies/Adverse Reactions: Allergies Allergy/AdvReac Type Severity Reaction Status Date / Time ferrous sulfate Allergy Unknown Verified 10/14/20 09:40 amlodipine besylate AdvReac Mild TIRED Verified 10/14/20 09:40 [From Norvas] aspirin AdvReac Mild FEELS LIKE Verified 10/14/20 09:40 "SHADE PULLED DOWN OVER EYES" diltiazem AdvReac Mild HOT Verified 10/14/20 09:40 FLASHES, DIZZY doxycycline AdvReac Mild Headache Verified 10/14/20 09:40 hydralazine [Hydralazine] AdvReac Mild "FELT BAD" Verified 10/14/20 09:40 hydrochlorothiazide AdvReac Mild "SICK" Verified 10/14/20 09:40 losartan potassium AdvReac Mild Headache Verified 10/14/20 09:40 [From Hyzaar] minoxidil AdvReac Mild "FELT REAL Verified 10/14/20 09:40 BAD" nabumetone [From Relafen] AdvReac Mild Nausea Verified 10/14/20 09:40 ondansetron HCl AdvReac Mild AKATHISIA Verified 10/14/20 09:40 [From Zofran (as hydrochloride)] oxaprozin [From Daypro] AdvReac Mild "ILL" Verified 10/14/20 09:40 promethazine HCl AdvReac Mild AKATHISIA Verified 10/14/20 09:40 [From Phenergan] SER-AP-ES AdvReac Mild "ILL" Uncoded 07/28/18 09:59 Home Medications: HOME MEDICATIONS Metoprolol Tartrate [Lopressor] 100 mg PO BID #60 tab 12/24/14 [Last Taken 06/03/15 07:00] Blood Sugar Diagnostic, Drum [Accu-Chek Compact Plus Strips] 1 ea MC DAILY 05/10/15 [Last Taken Unknown] Calcium/Cranberry Fruit [Cranberry 400 mg Caplet] 2 ea PO DAILY 05/10/15 [Last Taken Unknown] Cinnamon Bark [Cinnamon] 4,000 mg PO DAILY 05/10/15 [Last Taken Unknown] Fexofenadine/Pseudoephedrine [Angella-D 24 Hour Tablet] 1 ea PO DAILY 05/10/15 [Last Taken Unknown] Garlic 200 mg PO DAILY 05/10/15 [Last Taken Unknown] Glucosamine/D3/Boswellia Veronica [Osteo Bi-Flex Caplet] 2 ea PO DAILY 05/10/15 [Last Taken Unknown] Melatonin [Melatin] 3 mg PO HS 05/10/15 [Last Taken Unknown] Multivitamins [Multivitamin Naldo] 1 cap PO DAILY 05/10/15 [Last Taken Unknown] Vitamin E 400 unit PO DAILY 05/10/15 [Last Taken Unknown] Glucosamine/D3/Boswellia Veronica [Osteo Bi-Flex Tablet] 2 ea PO DAILY 07/28/18 [Last Taken Unknown] Glucerna 0 .ROUTE .MEDSUPPLY #900 oz 06/30/19 [Last Taken Unknown] ascorbic acid (vitamin C) 500 mg/5 mL oral syrup 500 mg FEEDING TUBE DAILY 07/27/19 [Last Taken Unknown] glycopyrrolate 1 mg/5 mL (0.2 mg/mL) oral solution 1 mg FEEDING TUBE BID #473 ml 07/27/19 [Last Taken Unknown] loratadine 5 mg/5 mL oral solution 10 ml PO DAILY #300 ml 07/27/19 [Last Taken Unknown] melatonin 1 mg/4 mL oral drops 1.25 mg FEEDING TUBE HS PRN #60 ml 09/07/19 [Last Taken Unknown] acetaminophen 32 mg/mL oral syringe (FOR ORAL USE ONLY) 320 mg PO Q6H ml 09/14/19 [Last Taken Unknown] pantoprazole 40 mg granules delayed-release for susp in packet 40 mg PO DAILY 09/14/19 [Last Taken Unknown] polyethylene glycol 3350 17 gram/dose oral powder 17 g PO DAILY 09/14/19 [Last Taken Unknown] calcium carbonate 200 mg calcium (500 mg) chewable tablet 400 mg FEEDING TUBE DAILY #180 tab 06/04/20 [Last Taken Unknown] blood sugar diagnostic See Dose Instructions .ROUTE .MEDSUPPLY #100 ea 07/04/20 [Last Taken Unknown] lancets 28 gauge See Dose Instructions .ROUTE .MEDSUPPLY #100 ea 07/04/20 [Last Taken Unknown] fluticasone propionate 50 mcg/actuation nasal spray,suspension 1 spray PATRICIA Q12H PRN #16 g 07/08/20 [Last Taken Unknown] glycopyrrolate 1 mg tablet 1 mg FEEDING TUBE BID #180 tab 08/05/20 [Last Taken Unknown] doxazosin 4 mg tablet 6 mg FEEDING TUBE BID #270 tab 08/08/20 [Last Taken U nknown] furosemide 40 mg tablet 40 mg FEEDING TUBE BID PRN #180 tab 10/14/20 [Last Taken Unknown] glipizide 10 mg tablet 10 mg PO DAILY #90 tab 12/05/20 [Last Taken Unknown] irbesartan 300 mg tablet 300 mg PO HS #90 tab 12/05/20 [Last Taken Unknown] levothyroxine 50 mcg tablet 50 mcg PO DAILY #90 tab 12/05/20 [Last Taken Unknown] metoprolol tartrate 100 mg tablet 100 mg PO BID #180 tab 12/05/20 [Last Taken Unknown] simvastatin 40 mg tablet 40 mg PO HS #90 tab 12/05/20 [Last Taken Unknown] thiamine HCl (vitamin B1) 100 mg tablet 100 mg FEEDING TUBE DAILY #100 tab 12/09/20 [Last Taken Unknown] cholecalciferol (vitamin D3) 10 mcg/mL (400 unit/mL) oral drops 15 mcg FEEDING TUBE DAILY #50 ml 12/13/20 [Last Taken Unknown] - History of Present Illness Narrative: Patient presents to the ED for dizzy, not feeling well for nearly a week. Worsening. Generally feels poorly. Dizziness is more of a lightheadedness. She has some mild SOB but no chest pain or abdominal pain. BP high. No acute focal weakness but has generalized weakness. Has not seen anyone elose for this. Not really positional for her. Timing and Duration: gradual onset Associated Symptoms: Present: weakness. Absent: hearing loss, vomiting, headache Sense of movement: Absent: spinning Decreased ability to stand/walk:: Present: weak Modifying Factors - (Improves): Reports: nothing Modifying Factors - (Worsens): Reports: nothing Prior Treament: Denies: recently seen Review of Systems - Review of Systems Constitutional: Absent: fever EYE: Absent: double vision ENT: Absent: sore throat Respiratory: Present: See HPI Cardiology: Absent: chest pain Gastrointestinal/Abdominal: Absent: abdominal pain Genitourinary: Absent: dysuria Neurological: Present: See HPI All Other Systems: All systems neg except as marked Medical History (Last Reviewed 01/01/21 @ 14:07 by Vaibhav Maldonado MD) COVID-19 vaccine series completed (Acute) Tremor (Chronic) Onset Date: ~07/07/10 Hypothyroidism (Chronic) Onset Date: Unknown Type 2 diabetes mellitus without complications (Chronic) Onset Date: Unknown Mitral regurgitation (Chronic) Onset Date: 07/14/11 Mild to moderate mitral regurgitation per ECHO obtained on 07/14/2011. CHF (congestive heart failure) (Chronic) Onset Date: 07/17/11 Arthritis Onset Date: Unknown Essential (primary) hypertension Onset Date: Unknown White coat syndrome with hypertension Onset Date: Unknown Hyperlipidemia Onset Date: Unknown Diabetic eye exam Onset Date: 10/22/20 10/22/2020: Dr. Robby Dela Cruz, [facility]. No diabetic retinopathy was found in either eye. Eczema Onset Date: Unknown GERD (gastroesophageal reflux disease) Onset Date: Unknown Surgical History: Surgical History (Last Reviewed 01/01/21 @ 14:07 by Vaibhav Maldonado MD) Status post insertion of percutaneous endoscopic gastrostomy (PEG) tube Onset Date: 07/13/19 History of breast biopsy Onset Date: ~1963 History of cataract surgery Onset Date: ~2014 left: 04/2015 Dr. Hurley right: 06/2015 Dr. Hurley History of colonoscopy Onset Date: ~200810/08/20042006 History of dilation and curettage Onset Date: ~1974 1965, 1974 positive endometrial biopsy History of esophagogastroduodenoscopy (EGD) Onset Date: 10/08/04 History of esophagogastroduodenoscopy (EGD) Onset Date: 04/11/19 Dr. Monico Segundo, [facility]. Esophageal high resolution pressure manometry by upper endoscopy. History of esophagogastroduodenoscopy (EGD) Onset Date: 04/24/19 Dr. Monico Segundo, [facility]. EGD w/ 4 Botox injections into the lower esophageal sphincter. History of knee joint replacement Onset Date: Unknown Family History: Family History (Last Reviewed 01/01/21 @ 14:07 by Vaibhav Maldonado MD) Sister Hypertension Mother Hypertension Father Hypertension Brother Hypertension Daughter , age 56 Colon cancer Social History: (Last Reviewed 01/01/21 @ 14:07 by Vaibhav Maldonado MD) Social History: adopted: No detention: No Marital status: lives independently: Yes household members: none current occupational status: retired Previous occupational history: [employer] Highest level of school completed/degree received: high school graduate Service: No Tobacco: Smoking Status: Never smoker Alcohol: alcohol intake: never Dietary Habits: caffeine: No Physical Exam - Physical Exam General Appearance: Present: alert, no apparent distress, other - generalized weakness noted Head Exam: Present: normal inspection, no evidence of injury Eye Exam: Normal inspection: bilateral, PERRL: bilateral Ears, Nose, Throat: Present: normal ENT inspection Neck: Present: normal inspection Respiratory: Present: no respiratory distress, normal breath sounds, no accessory muscle use, lungs clear Cardiovascular/Chest: Present: regular rate, rhythm, normal peripheral pulses Gastrointestinal/Abdominal: Present: normal bowel sounds, nontender, soft Back Exam: Absent: CVA tenderness (R), CVA tenderness (L) Extremity Exam: Present: pedal edema Neurological Exam: Present: alert, no motor/sensory deficits, other - no acute unilateral focal motor or sensory deficits noted. Generalized weaknes noted. Skin Exam: Present: normal color, warm/dry Progress - Results and Orders Patient's Lab Results:: I have reviewed the patient's lab results. - Vital Signs Patient's Vital Signs:: I have reviewed the patient's vital signs. Vital Signs: Vital Signs 01/01/21 10:02 01/01/21 10:20 01/01/21 11:32 Temperature 37 C 37 C Pulse Rate 77 77 79 Respiratory Rate 21 H 21 H Blood Pressure 207/82 H 207/82 H 198/98 H O2 Sat by Pulse Oximetry 92 L 92 L - EKG EKG #1 EKG: NSR EKG read: Interp. by me EKG Comments: NSR rate 79. Non-specific ST/T wave changes, no STEMI noted. - X-Ray X-Ray #1 X-Ray: chest Interpretation: Interp. by me X-ray Comments: I personally reviewed CXR images as well as official radiology report. - CT/Ultrasound CT/Ultrasound Narrative: I reviewed the official radiology report for CT head. - Progress/Reassessment Chief Complaint: Dizziness Progress Note-Subjective: 01/01/21 14:10 Patient had HTN with Sx. IV labetalol given when helped some with her BP. Also Meclizine given for possible vertigo. She did not feel well enough to go home and it is very reasonable to watch her BP and treat that with IV meds as there is no other clear cause for her pain. Very well could be hypertensive urgency as etiology of her Sx. I spoke with Dr Novoa who is her PCP and will admit the patient. Patient and family agreeable. Departure Clinical Impression: Hypertensive urgency, Dizzy, CHF (congestive heart failure) - Departure Disposition: Still a patient Condition: Fair
[2021-01-01] MEDS ORDERED: POLYETHYLENE GLYCOL 3350 17 GM PACKET PO PRN (16:53)
[2021-01-01] MEDS ORDERED: ACETAMINOPHEN 325 MG TABLET NG PRN (16:53)
[2021-01-01] MEDS ORDERED: FUROSEMIDE 10 MG/ML VIAL IV ONE (16:59)
[2021-01-01] MEDS: NORMAL SALINE 1,000 ML IV PRN (17:40)
[2021-01-01] MEDS ORDERED: SIMVASTATIN 40 MG TABLET NG SCH (21:00)
[2021-01-01] MEDS ORDERED: MELATONIN 3,000 MCG TABLET NG SCH (21:00)
[2021-01-01] MEDS ORDERED: GLYCOPYRROLATE 1 MG PO SCH (21:00)
[2021-01-01] MEDS ORDERED: LOSARTAN POTASSIUM 50 MG TABLET NG SCH (21:00)
[2021-01-01] MEDS: DOXAZOSIN MESYLATE 2 MG TABLET NG SCH (21:26)
[2021-01-01] MEDS: METOPROLOL TARTRATE 100 MG TABLET NG SCH (21:27)
--- NOTE | 2021-01-01 23:47 | HP ---
Chief Complaint - Chief Complaint Date of Service: 01/01/21 Time of Service: 16:15 Chief Complaint: Dizziness and shortness of breath History of Present Illness: Katie is an 89 yo female who presents to the [facility] ER with dizziness and shortness of breath. Her blood pressure was noted to be 200 systolic. She was given IV labetalol. She has a known history of refractory hypertension. She has a history of dysphagia with feeding tube. Evaluation showed elevated BNP, hyperkalemia of 4.7, and slightly elevated creatinine from baseline 1.68. No significant change in head CT, chest xray, or other labs. She denies any recent change in medication. She does admit to having more shortness of breath with laying down and has been sitting up more to breath. She has also had more swelling in her legs. Medical History (Last Reviewed 01/01/21 @ 14:13 by Estela Robles RN) COVID-19 vaccine series completed (Acute) Tremor (Chronic) Onset Date: ~07/07/10 Hypothyroidism (Chronic) Onset Date: Unknown Type 2 diabetes mellitus without complications (Chronic) Onset Date: Unknown Mitral regurgitation (Chronic) Onset Date: 07/14/11 Mild to moderate mitral regurgitation per ECHO obtained on 07/14/2011. CHF (congestive heart failure) (Chronic) Onset Date: 07/17/11 Arthritis Onset Date: Unknown Essential (primary) hypertension Onset Date: Unknown White coat syndrome with hypertension Onset Date: Unknown Hyperlipidemia Onset Date: Unknown Diabetic eye exam Onset Date: 10/22/20 10/22/2020: Dr. Robby Dela Cruz, [facility]. No diabetic retinopathy was found in either eye. Eczema Onset Date: Unknown GERD (gastroesophageal reflux disease) Onset Date: Unknown Surgical History: Surgical History (Last Reviewed 01/01/21 @ 14:13 by Estela Robles RN) Status post insertion of percutaneous endoscopic gastrostomy (PEG) tube Onset Date: 07/13/19 History of breast biopsy Onset Date: ~1963 History of cataract surgery Onset Date: ~2014 left: 04/2015 Dr. Hurley right: 06/2015 Dr. Hurley History of colonoscopy Onset Date: ~200810/08/20042006 History of dilation and curettage Onset Date: ~1974 1965, 1974 positive endometrial biopsy History of esophagogastroduodenoscopy (EGD) Onset Date: 10/08/04 History of esophagogastroduodenoscopy (EGD) Onset Date: 04/11/19 Dr. Monico Segundo, [facility]. Esophageal high resolution pressure manometry by upper endoscopy. History of esophagogastroduodenoscopy (EGD) Onset Date: 04/24/19 Dr. Monico Segundo, [facility]. EGD w/ 4 Botox injections into the lower esophageal sphincter. History of knee joint replacement Onset Date: Unknown Family History: Family History (Last Reviewed 01/01/21 @ 14:13 by Estela Robles RN) Sister Hypertension Mother Hypertension Father Hypertension Brother Hypertension Daughter , age 56 Colon cancer Social History: (Last Reviewed 01/01/21 @ 14:07 by Vaibhav Maldonado MD) Social History: adopted: No snf: No Marital status: lives independently: Yes household members: none current occupational status: retired Previous occupational history: [employer] Highest level of school completed/degree received: high school graduate Service: No Tobacco: Smoking Status: Never smoker Alcohol: alcohol intake: never Dietary Habits: caffeine: No Review Of Systems (GEN) - Review of Systems Generalized/Overall Review: Present: Weakness. Absent: Chills, Fever Respiratory: Present: Cough, Shortness of Breath, Orthopnea Cardiac: Present: Edema. Absent: Chest Pain, Palpitations Abdominal: Absent: Nausea, Vomiting Genitourinary: Absent: Burning, Urgency, Frequency Neurological: Absent: Headache, Numbness Skin: Absent: Lesions, Rash Immunizations: IMMUNIZATION HX Immunizations Up to Date No History of Influenza Vaccine Yes Hx Pneumococcal Vaccination Yes Allergies/Adverse Reactions: Allergies Allergy/AdvReac Type Severity Reaction Status Date / Time ferrous sulfate Allergy Unknown Verified 01/01/21 15:57 amlodipine besylate AdvReac Mild TIRED Verified 01/01/21 15:57 [From [facility]] aspirin AdvReac Mild FEELS LIKE Verified 01/01/21 15:57 "SHADE PULLED DOWN OVER EYES" diltiazem AdvReac Mild HOT Verified 01/01/21 15:57 FLASHES, DIZZY doxycycline AdvReac Mild Headache Verified 01/01/21 15:57 hydralazine [Hydralazine] AdvReac Mild "FELT BAD" Verified 01/01/21 15:57 hydrochlorothiazide AdvReac Mild "SICK" Verified 01/01/21 15:57 losartan potassium AdvReac Mild Headache Verified 01/01/21 15:57 [From Hyzaar] minoxidil AdvReac Mild "FELT REAL Verified 01/01/21 15:57 BAD" nabumetone [From Relafen] AdvReac Mild Nausea Verified 01/01/21 15:57 ondansetron HCl AdvReac Mild AKATHISIA Verified 01/01/21 15:57 [From Zofran (as hydrochloride)] oxaprozin [From Daypro] AdvReac Mild "ILL" Verified 01/01/21 15:57 promethazine HCl AdvReac Mild AKATHISIA Verified 01/01/21 15:57 [From Phenergan] SER-AP-ES AdvReac Mild "ILL" Uncoded 01/01/21 15:57 Home Medications: HOME MEDICATIONS Blood Sugar Diagnostic, Drum [Accu-Chek Compact Plus Strips] 1 ea MC DAILY 05/10/15 [Last Taken Unknown] Melatonin [Melatin] 3 mg PO HS 05/10/15 [Last Taken Unknown] loratadine 5 mg/5 mL oral solution 10 ml PO DAILY #300 ml 07/27/19 [Last Taken Unknown] polyethylene glycol 3350 17 gram/dose oral powder 17 g PO DAILY PRN 09/14/19 [Last Taken Unknown] blood sugar diagnostic See Dose Instructions .ROUTE .MEDSUPPLY #100 ea 07/04/20 [Last Taken Unknown] lancets 28 gauge See Dose Instructions .ROUTE .MEDSUPPLY #100 ea 07/04/20 [Last Taken Unknown] fluticasone propionate 50 mcg/actuation nasal spray,suspension 1 spray PATRICIA Q12H PRN #16 g 07/08/20 [Last Taken Unknown] glycopyrrolate 1 mg tablet 1 mg FEEDING TUBE BID #180 tab 08/05/20 [Last Taken Unknown] doxazosin 4 mg tablet 6 mg FEEDING TUBE BID #270 tab 08/08/20 [Last Taken Unknown] furosemide 40 mg tablet 40 mg FEEDING TUBE BID PRN #180 tab 10/14/20 [Last Taken Unknown] irbesartan 300 mg tablet 300 mg PO HS #90 tab 12/05/20 [Last Taken Unknown] levothyroxine 50 mcg tablet 50 mcg PO DAILY #90 tab 12/05/20 [Last Taken Unknown] metoprolol tartrate 100 mg tablet 100 mg PO BID #180 tab 12/05/20 [Last Taken Unknown] simvastatin 40 mg tablet 40 mg PO HS #90 tab 12/05/20 [Last Taken Unknown] thiamine HCl (vitamin B1) 100 mg tablet 100 mg FEEDING TUBE DAILY #100 tab 12/09/20 [Last Taken Unknown] cholecalciferol (vitamin D3) 10 mcg/mL (400 unit/mL) oral drops 15 mcg FEEDING TUBE DAILY #50 ml 12/13/20 [Last Taken Unknown] Acetaminophen [Tylenol] 650 mg PO Q6H PRN 01/01/21 [Last Taken Unknown] Calcium Carbonate [Tums] 500 mg PO DAILY 01/01/21 [Last Taken Unknown] Glycopyrrolate 1 mg PO BID 01/01/21 [Last Taken Unknown] Loratadine 10 mg PO DAILY 01/01/21 [Last Taken Unknown] glipiZIDE [Glipizide] 10 mg PO DAILY 01/01/21 [Last Taken Unknown] Exam - Exam Vital Signs: Vital Signs - Last Taken Temp 36.2 C 01/01/21 19:42 Pulse 76 01/01/21 21:27 Resp 16 01/01/21 19:42 BP 152/73 H 01/01/21 21:27 Pulse Ox 94 01/01/21 19:42 Constitutional: Present: Alert, Oriented x3, Cooperative ENT Exam: Present: hearing grossly normal Eye Exam: bilateral eye: normal inspection Respiratory: Present: lungs clear, normal breath sounds, no respiratory distress Cardiovascular/Chest: Present: regular rate, rhythm, no murmur Peripheral Pulses: radial (R): 2+, radial (L): 2+ Abdomen: Present: Normal bowel sounds, soft, nontender, other Extremity: Present: lower extremity edema - 3+ Skin Exam: Present: normal color, warm/dry, no cyanosis Neurologic: Present: alert, normal mood/affect, oriented x 3 Appearance: Present: appropriate appearance, appropriate insight Eye contact: Present: cooperative, good eye contact, normal speech Thoughts: Present: normal thought pattern, no apparent hallucination Diagnostic Studies: Abnormal Lab Results 01/01/21 01/01/21 01/01/21 Range/Units 10:49 11:17 11:17 RBC 3.23 L (4.2-5.4) M/mm3 Hgb 10.4 L (12.5-16.0) gm/dL Hct 31.9 L (37.0-47.0) % MCH 32.2 H (27-31) pg Neutrophils % 85.1 H (42-75.0) % Lymphocytes % 7.7 L (20-51) % Neutrophils # 6.3 H (1.3-6.0) K/mm3 Lymphocytes # 0.57 L (1.5-3.5) k/mm3 Potassium 4.7 H (3.4-4.6) mmol/L BUN 70 H (3-23) mg/dL Creatinine 1.68 H (0.4-1.4) mg/dL Est GFR (Non-Af Amer) 31 L (60-130) mL/min BUN/Creatinine Ratio 41.7 H (9.0-21.6) Random Glucose 363 H (70-110) mg/dL Lactic Acid, Venous (0.4-2.0) mmol/L B-Natriuretic Peptide 3002 H (5-550) pg/mL Urine Protein 30 H (NEGATIVE) mg/dL Urine Glucose (UA) 500 H (NEGATIVE) mg/dL 01/01/21 01/01/21 Range/Units 11:17 13:41 RBC (4.2-5.4) M/mm3 Hgb (12.5-16.0) gm/dL Hct (37.0-47.0) % MCH (27-31) pg Neutrophils % (42-75.0) % Lymphocytes % (20-51) % Neutrophils # (1.3-6.0) K/mm3 Lymphocytes # (1.5-3.5) k/mm3 Potassium (3.4-4.6) mmol/L BUN (3-23) mg/dL Creatinine (0.4-1.4) mg/dL Est GFR (Non-Af Amer) (60-130) mL/min BUN/Creatinine Ratio (9.0-21.6) Random Glucose (70-110) mg/dL Lactic Acid, Venous 2.5 H* 3.3 H* (0.4-2.0) mmol/L B-Natriuretic Peptide (5-550) pg/mL Urine Protein (NEGATIVE) mg/dL Urine Glucose (UA) (NEGATIVE) mg/dL Laboratory Results WBC 7.4 K/mm3 (4.0-10.5) 01/01/21 11:17 RBC 3.23 M/mm3 (4.2-5.4) L 01/01/21 11:17 Hgb 10.4 gm/dL (12.5-16.0) L 01/01/21 11:17 Hct 31.9 % (37.0-47.0) L 01/01/21 11:17 MCV 98.8 fl (78-100) 01/01/21 11:17 MCH 32.2 pg (27-31) H 01/01/21 11:17 MCHC 32.6 g/dl (32-36) 01/01/21 11:17 RDW 12.2 % (11.5-14.0) 01/01/21 11:17 Plt Count 185 K/mm3 (150-450) 01/01/21 11:17 MPV 11.8 fl (8-12.5) 01/01/21 11:17 Immature Gran % (Auto) 0.30 % (0.001-0.429) 01/01/21 11:17 Immature Gran # (Auto) 0.02 K/mm3 (0.000-0.0310) 01/01/21 11:17 Neutrophils % 85.1 % (42-75.0) H 01/01/21 11:17 Lymphocytes % 7.7 % (20-51) L 01/01/21 11:17 Monocytes % 5.8 % (0.0-9) 01/01/21 11:17 Eosinophils % 0.7 % (0.0-3.0) 01/01/21 11:17 Basophils % 0.4 % (0.0-1.0) 01/01/21 11:17 Nucleated RBC % 0.0 k/mm3 (0-1) 01/01/21 11:17 Neutrophils # 6.3 K/mm3 (1.3-6.0) H 01/01/21 11:17 Lymphocytes # 0.57 k/mm3 (1.5-3.5) L 01/01/21 11:17 Monocytes # 0.4 k/mm3 (0.0-1.0) 01/01/21 11:17 Eosinophils # 0.1 k/mm3 (0.0-0.7) 01/01/21 11:17 Absolute Basophils 0.0 k/mm3 (0.0-0.1) 01/01/21 11:17 Sodium 135 mmol/L (132-142) 01/01/21 11:17 Plasma Sodium 139 mmol/L (130-142) 01/01/21 11:17 Potassium 4.7 mmol/L (3.4-4.6) H 01/01/21 11:17 Chloride 97 mmol/L (97-106) 01/01/21 11:17 Carbon Dioxide 28.9 mmol/L (24-32.6) 01/01/21 11:17 Anion Gap 13.8 mmol/L (6.8-13.8) 01/01/21 11:17 BUN 70 mg/dL (3-23) H 01/01/21 11:17 Creatinine 1.68 mg/dL (0.4-1.4) H 01/01/21 11:17 Est GFR (Non-Af Amer) 31 mL/min (60-130) L 01/01/21 11:17 BUN/Creatinine Ratio 41.7 (9.0-21.6) H 01/01/21 11:17 Random Glucose 363 mg/dL (70-110) H 01/01/21 11:17 Lactic Acid, Venous 3.3 mmol/L (0.4-2.0) H* 01/01/21 13:41 Calcium 10.2 mg/dL (7.9-10.9) 01/01/21 11:17 Calcium Adj for Albumin 10.2 mg/dL (8.4-10.2) 01/01/21 11:17 Total Bilirubin 0.4 mg/dL (0.0-1.1) 01/01/21 11:17 AST 21 U/L (0-48) 01/01/21 11:17 ALT 20 U/L (19-67) 01/01/21 11:17 Alkaline Phosphatase 89 U/L (50-170) 01/01/21 11:17 Troponin I Less than 0.017 ng/mL (0.00-0.10) 01/01/21 11:17 B-Natriuretic Peptide 3002 pg/mL (5-550) H 01/01/21 11:17 Total Protein 7.7 gm/dL (6.2-8.2) 01/01/21 11:17 Albumin 3.6 gm/dl (3.4-5.0) 01/01/21 11:17 TSH 3.377 uIU/mL (0.358-3.74) 01/01/21 11:17 Urine Color Yellow 01/01/21 10:49 Urine Appearance Clear (CLEAR) 01/01/21 10:49 Urine pH 7.5 pH (5.0-7.0) 01/01/21 10:49 Ur Specific [place] 1.015 SP.GR. (1.005-1.010) 01/01/21 10:49 Urine Protein 30 mg/dL (NEGATIVE) H 01/01/21 10:49 Urine Glucose (UA) 500 mg/dL (NEGATIVE) H 01/01/21 10:49 Urine Ketones Negative mg/dL (NEGATIVE) 01/01/21 10:49 Urine Blood Negative /ul (NEGATIVE) 01/01/21 10:49 Urine Nitrate Negative (NEGATIVE) 01/01/21 10:49 Urine Bilirubin Negative mg/dl (NEGATIVE) 01/01/21 10:49 Urine Urobilinogen Normal EU/dl (NORMAL) 01/01/21 10:49 Ur Leukocyte Esterase Negative /ul (NEGATIVE) 01/01/21 10:49 Urine RBC None seen /hpf (0-5) 01/01/21 10:49 Urine WBC None seen /hpf (0-5) 01/01/21 10:49 Ur Epithelial Cells 0-5 /hpf (0-5) 01/01/21 10:49 Urine Bacteria None seen (NONE) 01/01/21 10:49 Urine Culture Comments No culture indicated 01/01/21 10:49 SARS-CoV-2 (PCR) Not detected (NotDetected) 01/01/21 10:53 Assessment/Plan - Narrative Narrative: Katie is an 89 yo female wtih: 1) Acute on Chronic Diastolic CHF: Her main problem appears to be fluid in areas it should such as her extremities and potentially lungs due to her orthopnea. There is not significant pulmonary congestion on chest xray, but clinically a ppears present. Her fluid is also not intravascular causing mild hyperkalemia and slightly elevated creatinine. She would do better with fluid in her intravascular space and not her third spaces. Will give her gentle hydration to help intravascular fluid at the same time as using lasix to help remove fluid from third spaces. Will monitor potassium and renal function. 2) Accelerated hypertension/hypertensive urgency. Blood pressure improved with labetalol, will give IV lasix and monitor. May be elevated from the acute on chronic diastolic CHF. Will admit to observation. Anticipate discharge to home tomorrow if blood pressure stable and fluid status improved. - Assessment/Plan (1) Acute on chronic diastolic CHF (congestive heart failure) Problem: Acute (2) Hypertensive urgency Problem: Acute (3) Accelerated hypertension Problem: Acute (4) Hyperkalemia Problem: Acute
[2021-01-02] MEDS ORDERED: LEVOTHYROXINE SODIUM 50 MCG TABLET NG SCH (07:00)
[2021-01-02] MEDS: NORMAL SALINE 1,000 ML IV PRN (07:07)
[2021-01-02] MEDS ORDERED: glipiZIDE 10 MG TABLET NG SCH (09:00)
[2021-01-02] MEDS ORDERED: LORATADINE 5 MG/5 ML SYRUP NG SCH (09:00)
[2021-01-02 09:11] LABS: Albumin * 2.8 gm/dl (3.4-5.0); Anion Gap 10.4 mmol/L (6.8-13.8); BUN/Creatinine Ratio 48.2 (9.0-21.6); Bilirubin, Total 0.4 mg/dL (0.0-1.1); Ca. Corrected For Albumin 10.2 mg/dL (8.4-10.2); Calcium * 9.6 mg/dL (7.9-10.9); Carbon Dioxide 27.6 mmol/L (24-32.6); Total Protein 6.3 gm/dL (6.2-8.2)
[2021-01-02] MEDS: DOXAZOSIN MESYLATE 2 MG TABLET NG SCH (09:23)
[2021-01-02] MEDS: METOPROLOL TARTRATE 100 MG TABLET NG SCH (09:24)
--- NOTE | 2021-01-02 13:58 | DS ---
(1) Acute on chronic diastolic CHF (congestive heart failure) Problem: Acute (2) Hypertensive urgency Problem: Acute (3) Accelerated hypertension Problem: Acute (4) Hyperkalemia Problem: Acute Date of Discharge:: 01/02/21 Hospital Course: Katie is an 89 yo female admitted to observation for elevated potassium, acute on chronic diastolic CHF, and hypertensive urgency. She was treated with IV labetalol and IV lasix, while given gentle hydration to help hyperkalemia and mildly elevated creatinine. She did well over night and today is feeling better. Her blood pressure has been back at her baseline, potassium normalized, and creatinine has improved from 1.68 to 1.3 and back at her baseline. Discussed keeping her legs elevated more to prevent edema. She also has difficulty with oral secretions even though she takes glycopyrrolate. Will start scopalamine patch to help with this. Discussed hospice, but she still wants to live on her own in her senior housing. She will follow up with me in 1- 2 weeks. Procedures Performed: none Results and Findings: Pending Mircobiology Results 01/01/21 11:17 Blood Blood Culture - Preliminary NO GROWTH 24 HOURS Lab Pending Results 01/01/21 10:49: Urine Color Yellow, Urine Appearance Clear, Urine pH 7.5, Ur Specific [place] 1.015, Urine Protein 30 H, Urine Glucose (UA) 500 H, Urine Ketones Negative, Urine Blood Negative, Urine Nitrate Negative, Urine Bilirubin Negative, Urine Urobilinogen Normal, Ur Leukocyte Esterase Negative, Urine RBC None seen, Urine WBC None seen, Ur Epithelial Cells 0-5, Urine Bacteria None seen, Urine Culture Comments No culture indicated 01/01/21 10:53: SARS-CoV-2 (PCR) Not detected 01/01/21 11:17: WBC 7.4, RBC 3.23 L, Hgb 10.4 L, Hct 31.9 L, MCV 98.8, MCH 32.2 H, MCHC 32.6, RDW 12.2, Plt Count 185, MPV 11.8, Immature Gran % (Auto) 0.30, Immature Gran # (Auto) 0.02, Neutrophils % 85.1 H, Lymphocytes % 7.7 L, Monocytes % 5.8, Eosinophils % 0.7, Basophils % 0.4, Nucleated RBC % 0.0, Neutrophils # 6.3 H, Lymphocytes # 0.57 L, Monocytes # 0.4, Eosinophils # 0.1, Absolute Basophils 0.0 01/01/21 11:17: Sodium 135, Plasma Sodium 139, Potassium 4.7 H, Chloride 97, Carbon Dioxide 28.9, Anion Gap 13.8, BUN 70 H, Creatinine 1.68 H, Est GFR (Non- Af Amer) 31 L, BUN/Creatinine Ratio 41.7 H, Random Glucose 363 H, Calcium 10.2, Calcium Adj for Albumin 10.2, Total Bilirubin 0.4, AST 21, ALT 20, Alkaline Phosphatase 89, Troponin I Less than 0.017, B-Natriuretic Peptide 3002 H, Total Protein 7.7, Albumin 3.6, TSH 3.377 01/01/21 11:17: Lactic Acid, Venous 2.5 H* 01/01/21 13:41: Lactic Acid, Venous 3.3 H* 01/02/21 08:48: Sodium 140, Plasma Sodium 141, Potassium 4.0, Chloride 106, Carbon Dioxide 27.6, Anion Gap 10.4, BUN 66 H, Creatinine 1.37, Est GFR (Non-Af Amer) 39 L D, BUN/Creatinine Ratio 48.2 H, Random Glucose 138 H D, Calcium 9.6, Calcium Adj for Albumin 10.2, Total Bilirubin 0.4, AST 20, ALT 17 L, Alkaline Phosphatase 80, Total Protein 6.3, Albumin 2.8 L Discharge Location: Home Disposition: Home self-care Condition: Fair Discharge Activity: Activity as tolerated Discharge Diet: Resume usual diet Referrals: Bishop Novoa DO [Primary Care Provider] - One Week Problem Oriented Discharge Instructions to Patient/Family: CHF Patient Instructions Prescriptions (Any new or edited meds): Scopolamine 1 ea TD Q72H #10 patch.td.3 Transmission Status: Pending to [facility], [place], [place] Complete Home Medications List: Complete Home Medication List: Blood Sugar Diagnostic, Drum [Accu-Chek Compact Plus Strips] 1 ea MC DAILY 05/10/15 Melatonin [Melatin] 3 mg PO HS 05/10/15 loratadine 5 mg/5 mL oral solution 10 ml PO DAILY #300 ml 07/27/19 polyethylene glycol 3350 17 gram/dose oral powder 17 g PO DAILY PRN 09/14/19 blood sugar diagnostic See Dose Instructions .ROUTE .MEDSUPPLY #100 ea 07/04/20 lancets 28 gauge See Dose Instructions .ROUTE .MEDSUPPLY #100 ea 07/04/20 fluticasone propionate 50 mcg/actuation nasal spray,suspension 1 spray PATRICIA Q12H PRN #16 g 07/08/20 glycopyrrolate 1 mg tablet 1 mg FEEDING TUBE BID #180 tab 08/05/20 doxazosin 4 mg tablet 6 mg FEEDING TUBE BID #270 tab 08/08/20 furosemide 40 mg tablet 40 mg FEEDING TUBE BID PRN #180 tab 10/14/20 irbesartan 300 mg tablet 300 mg PO HS #90 tab 12/05/20 levothyroxine 50 mcg tablet 50 mcg PO DAILY #90 tab 12/05/20 metoprolol tartrate 100 mg tablet 100 mg PO BID #180 tab 12/05/20 simvastatin 40 mg tablet 40 mg PO HS #90 tab 12/05/20 thiamine HCl (vitamin B1) 100 mg tablet 100 mg FEEDING TUBE DAILY #100 tab 12/09/20 cholecalciferol (vitamin D3) 10 mcg/mL (400 unit/mL) oral drops 15 mcg FEEDING TUBE DAILY #50 ml 12/13/20 Acetaminophen [Tylenol] 650 mg PO Q6H PRN 01/01/21 Calcium Carbonate [Tums] 500 mg PO DAILY 01/01/21 Glycopyrrolate 1 mg PO BID 01/01/21 Loratadine 10 mg PO DAILY 01/01/21 glipiZIDE [Glipizide] 10 mg PO DAILY 01/01/21 Scopolamine 1 ea TD Q72H #10 patch.td.3 01/02/21
[2021-01-02 14:46] VITALS: BP 156/79
== END 2021-01-02 15:00 | disposition home or self-care (01) ==
LOC: ER 10:01 → MS 10:01
PROVIDERS: ADMIT Family Medicine; ATTEND Family Medicine

== ENCOUNTER 2021-01-11 20:48 | Inpatient (IN) ==
[2021-01-11] MEDS ORDERED: NORMAL SALINE 1,000 ML IV ONE (21:18)
[2021-01-11] MEDS ORDERED: LABETALOL HCL 5 MG/ML VIAL IV ONE ×2 (21:20→23:21)
--- NOTE | 2021-01-11 21:28 | ERNOTE ---
Dyspnea - Date Date of Service: 01/11/21 - General Presenting Symptoms: shortness of breath Time Seen by Provider: 01/11/21 21:00 Source: patient, family - Immun/Allergies/Home Medications Immunizations: IMMUNIZATION HX Immunizations Up to Date Yes Immunizations Comment Full COVID vaccine History of Influenza Vaccine Yes Hx Pneumococcal Vaccination Yes Allergies/Adverse Reactions: Allergies ferrous sulfate Allergy (Unknown, Verified 01/11/21 21:10) amlodipine besylate [From Norvasc] Adverse Reaction (Mild, Verified 01/11/21 21:10) TIRED aspirin Adverse Reaction (Mild, Verified 01/11/21 21:10) FEELS LIKE "SHADE PULLED DOWN OVER EYES" diltiazem Adverse Reaction (Mild, Verified 01/11/21 21:10) HOT FLASHES, DIZZY doxycycline Adverse Reaction (Mild, Verified 01/11/21 21:10) Headache hydralazine [Hydralazine] Adverse Reaction (Mild, Verified 01/11/21 21:10) "FELT BAD" hydrochlorothiazide Adverse Reaction (Mild, Verified 01/11/21 21:10) "SICK" losartan potassium [From Hyzaar] Adverse Reaction (Mild, Verified 01/11/21 21:10) Headache minoxidil Adverse Reaction (Mild, Verified 01/11/21 21:10) "FELT REAL BAD" nabumetone [From Relafen] Adverse Reaction (Mild, Verified 01/11/21 21:10) Nausea ondansetron HCl [From Zofran (as hydrochloride)] Adverse Reaction (Mild, Verified 01/11/21 21:10) AKATHISIA oxaprozin [From Daypro] Adverse Reaction (Mild, Verified 01/11/21 21:10) "ILL" promethazine HCl [From Phenergan] Adverse Reaction (Mild, Verified 01/11/21 21:10) AKATHISIA SER-AP-ES Adverse Reaction (Mild, Uncoded 01/11/21 21:10) "ILL" Home Medications: HOME MEDICATIONS Blood Sugar Diagnostic, Drum [Accu-Chek Compact Plus Strips] 1 ea MC DAILY 05/10/15 [Last Taken Unknown] Melatonin [Melatin] 3 mg PEG HS 05/10/15 [Last Taken Unknown] polyethylene glycol 3350 17 gram/dose oral powder 17 g PEG DAILY PRN 02/20/20 [Last Taken Unknown] blood sugar diagnostic See Dose Instructions .ROUTE .MEDSUPPLY #100 ea 07/04/20 [Last Taken Unknown] lancets 28 gauge See Dose Instructions .ROUTE .MEDSUPPLY #100 ea 07/04/20 [Last Taken Unknown] fluticasone propionate 50 mcg/actuation nasal spray,suspension 1 spray PATRICIA Q12H PRN #16 g 07/08/20 [Last Taken Unknown] glycopyrrolate 1 mg tablet 1 mg FEEDING TUBE BID #180 tab 08/05/20 [Last Taken Unknown] doxazosin 4 mg tablet 6 mg FEEDING TUBE BID #270 tab 08/08/20 [Last Taken Unknown] furosemide 40 mg tablet 40 mg FEEDING TUBE BID PRN #180 tab 10/14/20 [Last Taken Unknown] thiamine HCl (vitamin B1) 100 mg tablet 100 mg FEEDING TUBE DAILY #100 tab 12/09/20 [Last Taken Unknown] cholecalciferol (vitamin D3) 10 mcg/mL (400 unit/mL) oral drops 15 mcg FEEDING TUBE DAILY #50 ml 12/13/20 [Last Taken Unknown] Acetaminophen [Tylenol] 650 mg PEG Q6H PRN 01/01/21 [Last Taken Unknown] Calcium Carbonate [Tums] 500 mg PEG DAILY 01/01/21 [Last Taken Unknown] Glycopyrrolate 1 mg PEG BID 01/01/21 [Last Taken Unknown] Loratadine 10 mg PEG DAILY 01/01/21 [Last Taken Unknown] glipiZIDE [Glipizide] 10 mg PEG DAILY 01/01/21 [Last Taken Unknown] Scopolamine 1 ea TD Q72H #10 patch.td.3 01/02/21 [Last Taken Unknown] Irbesartan 300 mg PEG HS 01/11/21 [Last Taken Unknown] Levothyroxine Sodium [Synthroid] 50 mcg PEG DAILY 01/11/21 [Last Taken Unknown] Loratadine 10 ml PEG DAILY 01/11/21 [Last Taken Unknown] Metoprolol Tartrate 100 mg PEG BID 01/11/21 [Last Taken Unknown] Simvastatin 40 mg PEG HS 01/11/21 [Last Taken Unknown] - History of Present Illness Narrative: 89-year-old female with a history of chronic congestive heart failure and hypertensive urgency, presents with shortness of breath and an elevated blood pressure. She is brought in by her daughter. Daughter states that she has not done well since breaking her neck in 2014. She was taking care of at the [facility]. No surgery was done on her neck but she did wear a brace. 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 This led to a feeding tube a year and a half ago. She takes in no nutrition by mouth. She has been struggling with secretions this entire time. Patient was recently admitted here for CHF and hypertensive urgency, as well as hyperkalemia. They did follow-up with Dr. Novoa as an outpatient. He recommended hospice but the patient did want to continue to live on her own in senior housing. She states that she was given a scopolamine patch for her copious secretions. They did "dry her up", per daughter. However, the scopolamine patch made her feel worse in general. She took the scopolamine patch off because it made her feel weird. She denies chest pain or back pain. Denies abdominal pain. She denies headache. She denies fever or chills. She denies dysuria. Review of Systems - Review of Systems Constitutional: Present: weakness, malaise. Absent: fever, chills ENT: Present: no symptoms reported Respiratory: Present: shortness of breath Cardiology: Absent: chest pain, palpitations Genitourinary: Present: no symptoms reported Skin: Present: no symptoms reported Neurological: Present: no symptoms reported All Other Systems: All systems neg except as marked Medical History (Last Reviewed 01/11/21 @ 21:24 by Kari Mosquera DO) COVID-19 vaccine series completed (Acute) Tremor (Chronic) Onset Date: ~07/07/10 Hypothyroidism (Chronic) Onset Date: Unknown Type 2 diabetes mellitus without complications (Chronic) Onset Date: Unknown Mitral regurgitation (Chronic) Onset Date: 07/14/11 Mild to moderate mitral regurgitation per ECHO obtained on 07/14/2011. CHF (congestive heart failure) (Chronic) Onset Date: 07/17/11 Arthritis Onset Date: Unknown Essential (primary) hypertension Onset Date: Unknown White coat syndrome with hypertension Onset Date: Unknown Hyperlipidemia Onset Date: Unknown Diabetic eye exam Onset Date: 10/22/20 10/22/2020: Dr. Robby Dela Cruz, [facility]. No diabetic retinopathy was found in either eye. Eczema Onset Date: Unknown GERD (gastroesophageal reflux disease) Onset Date: Unknown Surgical History: Surgical History (Last Reviewed 01/11/21 @ 21:24 by Kari Mosquera DO) Status post insertion of percutaneous endoscopic gastrostomy (PEG) tube Onset Date: 07/13/19 History of breast biopsy Onset Date: ~1963 History of cataract surgery Onset Date: ~2014 left: 04/2015 Dr. Hurley right: 06/2015 Dr. Hurley History of colonoscopy Onset Date: ~200810/08/20042006 History of dilation and curettage Onset Date: ~1974 1965, 1974 positive endometrial biopsy History of esophagogastroduodenoscopy (EGD) Onset Date: 10/08/04 History of esophagogastroduodenoscopy (EGD) Onset Date: 04/11/19 Dr. Monico Segundo, [facility]. Esophageal high resolution pressure manometry by upper endoscopy. History of esophagogastroduodenoscopy (EGD) Onset Date: 04/24/19 Dr. Monico Segundo, [facility]. EGD w/ 4 Botox injections into the lower esophageal sphincter. History of knee joint replacement Onset Date: Unknown Family History: Family History (Last Reviewed 01/11/21 @ 21:24 by Kari Mosquera DO) Daughter, age 56 Father Mother Colon cancer Daughter Hypertension Sister Mother Father Brother Social History: (Last Reviewed 01/11/21 @ 21:24 by Kari Mosquera DO) Social History: adopted: No assisted: No Marital status: lives independently: Yes household members: none current occupational status: retired Previous occupational history: [employer] Highest level of school completed/degree received: high school graduate Service: No Tobacco: Smoking Status: Never smoker Alcohol: alcohol intake: never Dietary Habits: caffeine: No Physical Exam - Physical Exam General Appearance: Present: alert, no apparent distress Ears, Nose, Throat: Present: normal ENT inspection Respiratory: Present: no respiratory distress, rales, other - Scattered crackles/Rales Cardiovascular/Chest: Present: regular rate, rhythm Gastrointestinal/Abdominal: Present: nontender, soft Extremity Exam: Present: pedal edema Skin Exam: Present: warm/dry Progress - Results and Orders Patient's Lab Results:: I have reviewed the patient's lab results. - Vital Signs Patient's Vital Signs:: I have reviewed the patient's vital signs. Vital Signs: Vital Signs 01/11/21 20:50 06/19/21 21:18 Temperature 36.2 C Pulse Rate 87 88 Respiratory Rate 16 Blood Pressure 197/85 H O2 Sat by Pulse Oximetry 95 - EKG EKG #1 EKG: NSR EKG read: Interp. by me EKG Comments: EKG performed at 2057 showed a sinus rhythm with first-degree block at a rate of 92, nonspecific ST and T wave changes, unchanged from an EKG done on 01/01/2021 - X-Ray X-Ray #1 X-Ray: chest Interpretation: Interp. by me X-ray Comments: 1 view chest x-ray showed cardiomegaly, increased pulmonary vasculature, no infiltrates, consistent with her chronic CHF - Progress/Reassessment Chief Complaint: Dyspnea Progress:: Improved Progress Note-Subjective: 01/11/21 23:13 I reviewed the patient's recent notes, including her discharge summary by Dr. Novoa from 01/01/2021. He discussed hospice with the patient and her daughter at that time, they were not ready at that time for the discussion. We did touch on it briefly tonight. She was placed on continuous pulse oximetry, she was placed on a cardiac rehab nurse. She had an IV started. Patient was given IV labetalol which brought her blood pressure down from 204/87 to 171/78. She is maintaining pulse ox of 95% on room air. She was given Lasix 40 mg IV push. Upon reexamination, she did tell me that she was feeling "a little bit better". They did not feel comfortable in going home. Her EKG and chest x-ray are unchanged compared to her previous from 2 weeks ago here. Her lab work is consistent with her baseline for the most part. White blood cell count is normal, her creatinine is normal. Her BNP is over 5000. I discussed all of her results with her and her daughter. I discussed the case with Dr. Hercules, who will admit the patient. Her blood pressure went up to 191 systolic. I did order a second dose of labetalol 20 mg IV push. We will continue to monitor her BP closely. I wrote bridging orders. 01/11/21 23:20 Departure Clinical Impression: Hypertensive urgency, Acute on chronic diastolic CHF (congestive heart failure) Congestive heart failure Qualifiers: Heart failure type: diastolic Heart failure chronicity: chronic Qualified Code(s): I50.32 - Chronic diastolic (congestive) heart failure - Departure Disposition: Still a patient Condition: Fair Referrals: Bishop Novoa DO [Primary Care Provider] -
[2021-01-11 21:35] LABS: Hematocrit 32.4 % (37.0-47.0); Hemoglobin 10.4 gm/dL (12.5-16.0); Mean Cell Volume 98.8 fl (78-100); Mean Corpuscular Hemoglobin 31.7 pg (27-31); Mean Corpuscular Hgb Conc 32.1 g/dl (32-36); Mean Platelet Volume 10.8 fl (8-12.5); Neutrophil # 4.7 K/mm3 (1.3-6.0); Neutrophil % 76.3 % (42-75.0); Platelet Count 199 K/mm3 (150-450); Red Blood Count 3.28 M/mm3 (4.2-5.4); Red Cell Distribution Width 12.3 % (11.5-14.0); White Blood Count 6.1 K/mm3 (4.0-10.5)
[2021-01-11 21:53] LABS: Albumin * 3.3 gm/dl (3.4-5.0); Anion Gap 9.7 mmol/L (6.8-13.8); BUN/Creatinine Ratio 49.6 (9.0-21.6); Bilirubin, Total 0.4 mg/dL (0.0-1.1); Ca. Corrected For Albumin 10.3 mg/dL (8.4-10.2); Calcium * 10.1 mg/dL (7.9-10.9); Carbon Dioxide 31.2 mmol/L (24-32.6); Potassium 3.9 mmol/L (3.4-4.6); Troponin I 0.019 ng/mL (0.00-0.10)
[2021-01-11] MEDS ORDERED: FUROSEMIDE 10 MG/ML VIAL IV ONE (22:44)
[2021-01-12] MEDS ORDERED: SIMVASTATIN 40 MG TABLET PO SCH (01:50)
[2021-01-12] MEDS ORDERED: MELATONIN 3,000 MCG TABLET PO SCH (02:00)
[2021-01-12] MEDS ORDERED: DOXAZOSIN MESYLATE 2 MG TABLET PO SCH (02:00)
[2021-01-12] MEDS ORDERED: ACETAMINOPHEN 325 MG TABLET PO PRN (02:07)
[2021-01-12] MEDS ORDERED: FUROSEMIDE 10 MG/ML VIAL IV ONE (02:15)
[2021-01-12] MEDS: DOXAZOSIN MESYLATE 2 MG TABLET PO SCH ×2 (02:35→09:48)
[2021-01-12] MEDS: METOPROLOL TARTRATE 100 MG TABLET PO SCH ×2 (02:35→09:48)
[2021-01-12] MEDS ORDERED: POLYETHYLENE GLYCOL 3350 17 GM PACKET PO PRN (10:12)
[2021-01-12] MEDS ORDERED: FUROSEMIDE 40 MG TABLET PEG PRN (10:12)
--- NOTE | 2021-01-12 10:56 | HP ---
Chief Complaint - Chief Complaint Date of Service: 01/12/21 Time of Service: 10:35 Chief Complaint: I had shortness of breath and weakness yesterday History of Present Illness: 89-year-old female with past medical history of type 2 diabetes, hypertension, hyperlipidemia, osteoarthritis, PEG tube status, cervical radiculopathy, CHF, CKD 3, was brought to the ER by her daughter for evaluation of increasing shortness of breath and weakness that started yesterday. Patient was admitted 3 weeks ago for similar symptoms due to apparent CHF and fluid overload. She was treated with diuretics and antihypertensives to treat her condition, once stabilized the patient was discharged home with an increase in her daily diuretics to 80 mg a day. However today she admits that she did not follow the doctors orders and was taking only 40 mg in the morning and the second dose only if she felt that she needed. Before being taken to the ER the patient was not given any of her evening medications which would explain her significantly elevated blood pressure. The patient was treated for hypertensive urgency in the ER with multiple dose of labetalol as well as diuretics. She was found to have an elevated BNP which is not new for the patient but showed a significant increase. After receiving the treatment in the ER the patient reported feeling better and significant improvement in her shortness of breath. The patient currently has a PEG tube in place due to dysphagia and excessive secretion which she when she fell level years ago causing tears of her cervical vertebrae. During the most recent hospital stay the patient's PCP recommended placing her on hospice care but the patient and her daughter declined and said they are not ready for that. They report not having any major issues until she became ill yesterday. At the moment the patient denies any chest pain dizziness or other new associated symptoms. Medical History (Last Reviewed 01/12/21 @ 00:55 by Kari Keller RN) COVID-19 vaccine series completed (Acute) Tremor (Chronic) Onset Date: ~07/07/10 Hypothyroidism (Chronic) Onset Date: Unknown Type 2 diabetes mellitus without complications (Chronic) Onset Date: Unknown Mitral regurgitation (Chronic) Onset Date: 07/14/11 Mild to moderate mitral regurgitation per ECHO obtained on 07/14/2011. CHF (congestive heart failure) (Chronic) Onset Date: 07/17/11 Arthritis Onset Date: Unknown Essential (primary) hypertension Onset Date: Unknown White coat syndrome with hypertension Onset Date: Unknown Hyperlipidemia Onset Date: Unknown Diabetic eye exam Onset Date: 10/22/20 10/22/2020: Dr. Robby Dela Cruz, [facility]. No diabetic retinopathy was found in either eye. Eczema Onset Date: Unknown GERD (gastroesophageal reflux disease) Onset Date: Unknown Surgical History: Surgical History (Last Reviewed 01/12/21 @ 00:56 by Kari Keller RN) Status post insertion of percutaneous endoscopic gastrostomy (PEG) tube Onset Date: 07/13/19 History of breast biopsy Onset Date: ~1963 History of cataract surgery Onset Date: ~2014 left: 04/2015 Dr. Hurley right: 06/2015 Dr. Hurley History of colonoscopy Onset Date: ~200810/08/20042006 History of dilation and curettage Onset Date: ~1974 1965, 1974 positive endometrial biopsy History of esophagogastroduodenoscopy (EGD) Onset Date: 10/08/04 History of esophagogastroduodenoscopy (EGD) Onset Date: 04/11/19 Dr. Monico Segundo, [facility]. Esophageal high resolution pressure manometry by upper endoscopy. History of esophagogastroduodenoscopy (EGD) Onset Date: 04/24/19 Dr. Monico Segundo, [facility]. EGD w/ 4 Botox injections into the lower esophageal sphincter. History of knee joint replacement Onset Date: Unknown Family History: Family History (Last Reviewed 01/12/21 @ 00:56 by Kari Keller RN) Sister Hypertension Mother Hypertension Father Hypertension Brother Hypertension Daughter , age 56 Colon cancer Social History: (Last Reviewed 01/12/21 @ 00:57 by Kari Keller RN) Social History: adopted: No longterm: No Marital status: lives independently: Yes household members: none current occupational status: retired Previous occupational history: [employer] Highest level of school completed/degree received: high school graduate Service: No Tobacco: Smoking Status: Never smoker Alcohol: alcohol intake: never Dietary Habits: caffeine: No Peds Patient Hx - Developmental: No Pertinent Hx Peds Patient Hx - Medical: No Pertinent Hx Peds Patient Hx - Cardiac/Respiratory: No Pertinent Hx Peds Patient Hx - Surgical: No Surgical History Patient History - Cancer: No Hx of Cancer Review Of Systems (GEN) - Review of Systems Generalized/Overall Review: Present: Fatigue EENTM: Present: No Symptoms Reported Respiratory: Present: Shortness of Breath, Other - Excessive secretions Cardiac: Present: No Symptoms Reported Abdominal: Present: No Symptoms Reported Genitourinary: Present: No Symptoms Reported Musculoskeletal: Present: No Symptoms Reported Neurological: Present: No Symptoms Reported Skin: Present: No Symptoms Reported Endocrine: Present: No Symptoms Reported Immunizations: IMMUNIZATION HX Immunizations Up to Date Yes Immunizations Comment Full COVID vaccine History of Influenza Vaccine Yes Hx Pneumococcal Vaccination Yes Allergies/Adverse Reactions: Allergies Allergy/AdvReac Type Severity Reaction Status Date / Time ferrous sulfate Allergy Unknown Verified 01/11/21 21:10 amlodipine besylate AdvReac Mild TIRED Verified 01/11/21 21:10 [From Norvasc] aspirin AdvReac Mild FEELS LIKE Verified 01/11/21 21:10 "SHADE PULLED DOWN OVER EYES" diltiazem AdvReac Mild HOT Verified 01/11/21 21:10 FLASHES, DIZZY doxycycline AdvReac Mild Headache Verified 01/11/21 21:10 hydralazine [Hydralazine] AdvReac Mild "FELT BAD" Verified 01/11/21 21:10 hydrochlorothiazide AdvReac Mild "SICK" Verified 01/11/21 21:10 losartan potassium AdvReac Mild Headache Verified 01/11/21 21:10 [From Hyzaar] minoxidil AdvReac Mild "FELT REAL Verified 01/11/21 21:10 BAD" nabumetone [From Relafen] AdvReac Mild Nausea Verified 01/11/21 21:10 ondansetron HCl AdvReac Mild AKATHISIA Verified 01/11/21 21:10 [From Zofran (as hydrochloride)] oxaprozin [From Daypro] AdvReac Mild "ILL" Verified 01/11/21 21:10 promethazine HCl AdvReac Mild AKATHISIA Verified 01/11/21 21:10 [From Phenergan] scopolamine AdvReac Mild Other Verified 01/12/21 04:08 SER-AP-ES AdvReac Mild "ILL" Uncoded 01/11/21 21:10 Home Medications: HOME MEDICATIONS Blood Sugar Diagnostic, Drum [Accu-Chek Compact Plus Strips] 1 ea MC DAILY 05/10/15 [Last Taken Unknown] Melatonin [Melatin] 3 mg PEG HS 05/10/15 [Last Taken 01/10/21 21:00] polyethylene glycol 3350 17 gram/dose oral powder 17 g PEG DAILY PRN 09/14/19 [Last Taken Unknown] blood sugar diagnostic See Dose Instructions .ROUTE .MEDSUPPLY #100 ea 07/04/20 [Last Taken Unknown] lancets 28 gauge See Dose Instructions .ROUTE .MEDSUPPLY #100 ea 07/04/20 [Last Taken Unknown] fluticasone propionate 50 mcg/actuation nasal spray,suspension 1 spray PATRICIA Q12H PRN #16 g 07/08/20 [Last Taken Unknown] glycopyrrolate 1 mg tablet 1 mg FEEDING TUBE BID #180 tab 08/05/20 [Last Taken 01/11/21 11:30] doxazosin 4 mg tablet 6 mg FEEDING TUBE BID #270 tab 08/08/20 [Last Taken 01/11/21 11:30] furosemide 40 mg tablet 40 mg FEEDING TUBE BID PRN #180 tab 10/14/20 [Last Taken 01/11/21 11:30] thiamine HCl (vitamin B1) 100 mg tablet 100 mg FEEDING TUBE DAILY #100 tab 12/09/20 [Last Taken 01/11/21 11:30] cholecalciferol (vitamin D3) 10 mcg/mL (400 unit/mL) oral drops 15 mcg FEEDING TUBE DAILY #50 ml 12/13/20 [Last Taken 01/11/21 11:30] Acetaminophen [Tylenol] 650 mg PEG Q6H PRN 01/01/21 [Last Taken Unknown] Calcium Carbonate [Tums] 500 mg PEG DAILY 01/01/21 [Last Taken 01/11/21 11:30] Loratadine 10 mg PEG DAILY 01/01/21 [Last Taken 01/11/21 11:30] glipiZIDE [Glipizide] 10 mg PEG DAILY 01/01/21 [Last Taken 01/11/21 11:30] Irbesartan 300 mg PEG HS 01/11/21 [Last Taken 01/10/21] Levothyroxine Sodium [Synthroid] 50 mcg PEG DAILY 01/11/21 [Last Taken 01/11/21 11:30] Metoprolol Tartrate 100 mg PEG BID 01/11/21 [Last Taken 01/11/21 11:30] Simvastatin 40 mg PEG HS 01/11/21 [Last Taken 01/10/21 21:00] Exam - Exam Vital Signs: Vital Signs - Last Taken Temp 36.4 C 01/12/21 07:20 Pulse 77 01/12/21 09:48 Resp 20 01/12/21 07:20 BP 166/70 H 01/12/21 09:48 Pulse Ox 95 01/12/21 07:20 Constitutional: Present: Alert, Oriented x3, Cooperative, Well developed, No distress, Elderly, Thin and frail ENT Exam: Present: normal ENT inspection, hearing grossly normal Eye Exam: bilateral eye: normal inspection, PERRL, EOMI Neck: Present: non-tender, supple, normal inspection, limited range of motion Back Exam: Present: normal inspection, no CVA tenderness, no vertebral tenderness Breasts: Present: Exam deferred, Nontender Respiratory: Present: chest non-tender, lungs clear, normal breath sounds, no re spiratory distress, no accessory muscle use Cardiovascular/Chest: Present: normal peripheral pulses, regular rate, rhythm, no chest tenderness, no edema, no gallop, no JVD, no murmur, no rub Peripheral Pulses: dorsalis-pedis (R): 2+, dorsalis-pedis (L): 2+ Abdomen: Present: Normal bowel sounds, soft, nontender, nondistended, no rebound tenderness, no hepatospenomegaly, no masses, other - PEG tube in mid abdomen with no signs of drainage or infection. 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 as tested, no motor/sensory deficits, alert, normal mood/affect, oriented x 3 Appearance: Present: appropriate appearance, appropriate insight, neat, no memory impairment Eye contact: Present: cooperative, good eye contact, normal speech Thoughts: Present: normal thought pattern, no apparent hallucination Diagnostic Studies: Abnormal Lab Results 01/11/21 01/11/21 Range/Units 21:29 21:29 RBC 3.28 L (4.2-5.4) M/mm3 Hgb 10.4 L (12.5-16.0) gm/dL Hct 32.4 L (37.0-47.0) % MCH 31.7 H (27-31) pg Neutrophils % 76.3 H (42-75.0) % Lymphocytes % 9.2 L (20-51) % Monocytes % 11.3 H (0.0-9) % Lymphocytes # 0.56 L (1.5-3.5) k/mm3 BUN 68 H (3-23) mg/dL Est GFR (Non-Af Amer) 39 L (60-130) mL/min BUN/Creatinine Ratio 49.6 H (9.0-21.6) Random Glucose 177 H (70-110) mg/dL Calcium Adj for Albumin 10.3 H (8.4-10.2) mg/dL ALT 16 L (19-67) U/L B-Natriuretic Peptide 5466 H (5-550) pg/mL Albumin 3.3 L (3.4-5.0) gm/dl Laboratory Results WBC 6.1 K/mm3 (4.0-10.5) 01/11/21 21: RBC 3.28 M/mm3 (4.2-5.4) L 01/11/21 21: Hgb 10.4 gm/dL (12.5-16.0) L 01/11/21 21: Hct 32.4 % (37.0-47.0) L 01/11/21 21: MCV 98.8 fl (78-100) 01/11/21 21: MCH 31.7 pg (27-31) H 01/11/21 21: MCHC 32.1 g/dl (32-36) 01/11/21 21: RDW 12.3 % (11.5-14.0) 01/11/21: Plt Count 199 K/mm3 (150-450) 01/11/21: MPV 10.8 fl (8-12.5) 01/11/21 21: Immature Gran % (Auto) 0.20 % (0.001-0.429) 01/11/21: Immature Gran # (Auto) 0.01 K/mm3 (0.000-0.0310) 01/11/21 21: Neutrophils % 76.3 % (42-75.0) H 01/11/21 21: Lymphocytes % 9.2 % (20-51) L 01/11/21: Monocytes % 11.3 % (0.0-9) H 01/11/21: Eosinophils % 2.5 % (0.0-3.0) 01/11/21: Basophils % 0.5 % (0.0-1.0) 01/11/21: Nucleated RBC % 0.0 k/mm3 (0-1) 01/11/21 21: Neutrophils # 4.7 K/mm3 (1.3-6.0) 01/11/21: Lymphocytes # 0.56 k/mm3 (1.5-3.5) L 01/11/21: Monocytes # 0.7 k/mm3 (0.0-1.0) 01/11/21: Eosinophils # 0.2 k/mm3 (0.0-0.7) 01/11/21: Absolute Basophils 0.0 k/mm3 (0.0-0.1) 01/11/21 21: Sodium 139 mmol/L (132-142) 01/11/21: Plasma Sodium 140 mmol/L (130-142) 01/11/21: Potassium 3.9 mmol/L (3.4-4.6) 01/11/21: Chloride 102 mmol/L (97-106) 01/11/21: Carbon Dioxide 31.2 mmol/L (24-32.6) 01/11/21: Anion Gap 9.7 mmol/L (6.8-13.8) 01/11/21: BUN 68 mg/dL (3-23) H 01/11/21: Creatinine 1.37 mg/dL (0.4-1.4) 01/11/21: Est GFR (Non-Af Amer) 39 mL/min (60-130) L 01/11/21: BUN/Creatinine Ratio 49.6 (9.0-21.6) H 01/11/21 21: Random Glucose 177 mg/dL (70-110) H 01/11/21: Calcium 10.1 mg/dL (7.9-10.9) 01/11/21 21: Calcium Adj for Albumin 10.3 mg/dL (8.4-10.2) H 01/11/21 21: Total Bilirubin 0.4 mg/dL (0.0-1.1) 01/11/21 21: AST 17 U/L (0-48) 01/11/21: ALT 16 U/L (19-67) L 01/11/21: Alkaline Phosphatase 82 U/L (50-170) 01/11/21: Troponin I 0.019 ng/mL (0.00-0.10) 01/11/21: B-Natriuretic Peptide 5466 pg/mL (5-550) H 01/11/21: Total Protein 7.0 gm/dL (6.2-8.2) 01/11/21: Albumin 3.3 gm/dl (3.4-5.0) L 01/11/21: SARS-CoV-2 (PCR) Not detected (NotDetected) 01/11/21 23:00 Assessment/Plan - Narrative Narrative: Patient was evaluated and medical chart was reviewed and decision to admit to [facility] for diagnosis and treatment of hypertensive crisis, which has resolved, hypertension, and CHF was made. Patient has known improvement with her intrahospital care so far, her shortness of breath has improved significantly and she reports feeling better. The patient responded favorably to an additional days of IV diuretics and multiple doses of antihypertensives. Since then her blood pressure has also improved and has remained stable. Her issue at the moment is excessive bronchial secretions and difficulty swallowing however neither 1 of these symptoms are new for the patient and look like they are progressing. We will treat this symptomatically and observe the patient closely. - Assessment/Plan (1) Hypertensive urgency Problem: Acute (2) Acute on chronic diastolic CHF (congestive heart failure) Problem: Acute (3) Dysphagia Problem: Acute (4) Accelerated hypertension Problem: Acute (5) Hypothyroidism Problem: Chronic (6) Type 2 diabetes mellitus without complications Problem: Chronic (7) Mitral regurgitation Problem: Chronic (8) C1 cervical fracture Problem: Chronic (9) C2 cervical fracture Problem: Chronic (10) Hyperlipidemia Problem: Chronic (11) Diabetes mellitus type 2 in nonobese Problem: Chronic (12) Hypertension Problem: Chronic Qualifiers: (13) Excessive mucus secretion Problem: Acute
[2021-01-12] MEDS: glipiZIDE 10 MG TABLET PEG SCH (11:19)
[2021-01-12] MEDS: LEVOTHYROXINE SODIUM 50 MCG TABLET PEG SCH (11:19)
[2021-01-12] MEDS: CHOLECALCIFEROL 400 UNIT TABLET GT SCH (11:19)
[2021-01-12] MEDS: THIAMINE HCL 100 MG TABLET PEG SCH (11:19)
[2021-01-12] MEDS: LORATADINE 10 MG TABLET PEG SCH (11:19)
[2021-01-12] MEDS: INSULIN REGULAR, HUMAN 100 UNITS/ML VIAL SC SCH ×3 (11:20→21:53)
[2021-01-12] MEDS ORDERED: LORazepam 2 MG/ML DISP.SYRIN IV PRN (13:05)
[2021-01-12] MEDS ORDERED: CYCLOBENZAPRINE HCL 10 MG TABLET PO PRN (13:06)
[2021-01-12] MEDS ORDERED: LOSARTAN POTASSIUM 50 MG TABLET ONE (13:18)
[2021-01-12] MEDS: LOSARTAN POTASSIUM 50 MG TABLET PEG SCH ×2 (13:23→21:48)
[2021-01-12] MEDS ORDERED: NITROGLYCERIN 0.4 MG/TAB BTL SL PRN (14:29)
[2021-01-12] MEDS: DOXAZOSIN MESYLATE 2 MG TABLET GT SCH (21:47)
[2021-01-12] MEDS: METOPROLOL TARTRATE 100 MG TABLET PEG SCH (21:53)
[2021-01-12] MEDS: PANTOPRAZOLE SODIUM 20 MG TABLET.DR PO SCH (21:54)
[2021-01-12] MEDS: MELATONIN 3,000 MCG TABLET PEG SCH (21:54)
[2021-01-12] MEDS: SIMVASTATIN 40 MG TABLET PEG SCH (21:55)
[2021-01-13 06:40] LABS: Albumin * 2.8 gm/dl (3.4-5.0); Anion Gap 9.2 mmol/L (6.8-13.8); BUN/Creatinine Ratio 48.9 (9.0-21.6); Bilirubin, Total 0.3 mg/dL (0.0-1.1); Ca. Corrected For Albumin 10.5 mg/dL (8.4-10.2); Calcium * 9.9 mg/dL (7.9-10.9); Carbon Dioxide 30.5 mmol/L (24-32.6); Potassium 4.7 mmol/L (3.4-4.6); Total Protein 6.3 gm/dL (6.2-8.2)
[2021-01-13] MEDS: INSULIN REGULAR, HUMAN 100 UNITS/ML VIAL SC SCH ×4 (06:46→22:16)
[2021-01-13] MEDS: LEVOTHYROXINE SODIUM 50 MCG TABLET PEG SCH (09:15)
[2021-01-13] MEDS: LORATADINE 10 MG TABLET PEG SCH (09:16)
[2021-01-13] MEDS: PANTOPRAZOLE SODIUM 20 MG TABLET.DR PO SCH ×2 (09:16→21:19)
[2021-01-13] MEDS: CHOLECALCIFEROL 400 UNIT TABLET GT SCH (09:16)
[2021-01-13] MEDS: DOXAZOSIN MESYLATE 2 MG TABLET GT SCH ×2 (09:17→21:18)
[2021-01-13] MEDS: METOPROLOL TARTRATE 100 MG TABLET PEG SCH ×2 (09:17→21:19)
[2021-01-13] MEDS: THIAMINE HCL 100 MG TABLET PEG SCH (09:17)
[2021-01-13] MEDS: glipiZIDE 10 MG TABLET PEG SCH (09:17)
[2021-01-13] MEDS: FLUTICASONE PROPIONATE 120 SPRAY INHALER NS PRN (13:21)
[2021-01-13] MEDS: ATROPINE SULFATE 50 DROP BTL SL PRN (16:05)
[2021-01-13] MEDS: MELATONIN 3,000 MCG TABLET PEG SCH (21:18)
[2021-01-13] MEDS: LOSARTAN POTASSIUM 50 MG TABLET PEG SCH (21:19)
[2021-01-13] MEDS: SIMVASTATIN 40 MG TABLET PEG SCH (21:19)
--- NOTE | 2021-01-13 23:14 | PN ---
Subjective - Date and Time Seen Date: 01/13/21 Time: 12:30 Subjective Narrative: Katie reports continue dyspnea, weakness, constantly coughing up secretions. No sore throat, fever, chills, nausea, or vomiting. Objective - Vitals Vitals: Last Vital Signs Temp 37.4 C 01/13/21 21:24 Pulse 78 01/13/21 21:24 Resp 20 01/13/21 21:24 BP 142/86 01/13/21 21:24 Pulse Ox 93 01/13/21 21:24 - Abnormal Lab Findings Abnormal Lab Findings: Abnormal Lab Results 01/13/21 Range/Units 06:19 Potassium 4.7 H D (3.4-4.6) mmol/L BUN 66 H (3-23) mg/dL Est GFR (Non-Af Amer) 39 L (60-130) mL/min BUN/Creatinine Ratio 48.9 H (9.0-21.6) Random Glucose 154 H (70-110) mg/dL Calcium Adj for Albumin 10.5 H (8.4-10.2) mg/dL ALT 14 L (19-67) U/L Albumin 2.8 L (3.4-5.0) gm/dl - Exam Constitutional: Present: Alert, Oriented x3, Cooperative Respiratory: Present: rhonchi, other - constantly trying to cough up secretions Cardiovascular/Chest: Present: regular rate, rhythm, no murmur Abdomen: Present: Normal bowel sounds, soft, nontender, nondistended Extremity: Present: normal inspection Skin Exam: Present: normal color, warm/dry, no cyanosis Neurologic: Present: alert, normal mood/affect, oriented x 3 Assessment/Plan Plan Narrative: Katie is progressively getting weaker and continuing to have problems with acute on chronic diastolic chf due to decreased activity level. Her achalasia is getting worse due to weakness and she is having more problems with secretions. Will start SL atropine drops and schedule mucinex. Will consult PT, OT, and ST for strengthening. She is not able to improve at home discussed living with daughter and consulting hospice if she did not want to work with therapies or would look into SNF with full therapies. She would like to try strengthening and if she does not see any improvement will plan to go hospice for chronic diastolic CHF and achalsia. - Problems/Diagnosis (1) Achalasia Problem: Acute (2) Acute on chronic diastolic CHF (congestive heart failure) Problem: Acute
[2021-01-14] MEDS: DOXAZOSIN MESYLATE 2 MG TABLET GT SCH ×3 (07:30→20:43)
[2021-01-14] MEDS: METOPROLOL TARTRATE 100 MG TABLET PEG SCH ×3 (07:30→20:44)
[2021-01-14] MEDS: ACETAMINOPHEN 325 MG TABLET PEG PRN (07:30)
[2021-01-14] MEDS: PANTOPRAZOLE SODIUM 20 MG TABLET.DR PO SCH ×2 (07:30→20:46)
[2021-01-14] MEDS: LORATADINE 10 MG TABLET PEG SCH ×2 (07:30→08:38)
[2021-01-14] MEDS: LEVOTHYROXINE SODIUM 50 MCG TABLET PEG SCH (07:30)
[2021-01-14] MEDS: CHOLECALCIFEROL 400 UNIT TABLET GT SCH ×2 (07:30→08:38)
[2021-01-14] MEDS: THIAMINE HCL 100 MG TABLET PEG SCH ×2 (07:30→08:38)
[2021-01-14] MEDS: glipiZIDE 10 MG TABLET PEG SCH ×2 (07:31→08:38)
[2021-01-14] MEDS: INSULIN REGULAR, HUMAN 100 UNITS/ML VIAL SC SCH ×4 (07:48→21:13)
[2021-01-14] MEDS: FLUTICASONE PROPIONATE 120 SPRAY INHALER NS PRN (08:38)
[2021-01-14] MEDS: MELATONIN 3,000 MCG TABLET PEG SCH (20:44)
[2021-01-14] MEDS: LOSARTAN POTASSIUM 50 MG TABLET PEG SCH (20:44)
[2021-01-14] MEDS: SIMVASTATIN 40 MG TABLET PEG SCH (20:45)
--- NOTE | 2021-01-14 22:31 | PN ---
Subjective - Date and Time Seen Date: 01/14/21 Time: 12:45 Subjective Narrative: Katie reports less secretions, but she thought the atropine drops made her nauseated. She feels a little stronger today. Objective - Vitals Vitals: Last Vital Signs Temp 36.2 C 01/14/21 21:39 Pulse 72 01/14/21 21:39 Resp 20 01/14/21 21:39 BP 168/68 H 01/14/21 21:39 Pulse Ox 97 01/14/21 21:39 - Exam Constitutional: Present: Alert, Oriented x3, Cooperative ENT Exam: Present: hearing grossly normal Respiratory: Present: no respiratory distress, rhonchi Cardiovascular/Chest: Present: regular rate, rhythm, no murmur Abdomen: Present: Normal bowel sounds, soft, nontender, nondistended Skin Exam: Present: normal color, warm/dry, no cyanosis Appearance: Present: appropriate appearance, appropriate insight Eye contact: Present: cooperative, good eye contact, normal speech Thoughts: Present: normal thought pattern, no apparent hallucination Assessment/Plan Plan Narrative: Secretions improved, strength improved. She is still needing further strengthening and not ready for home discharge. Breathing is improved. Continue current medications and therapies. Continue looking into SNF. - Problems/Diagnosis (1) Achalasia Problem: Acute (2) Acute on chronic diastolic CHF (congestive heart failure) Problem: Acute
[2021-01-15] MEDS: ACETAMINOPHEN 325 MG TABLET PEG PRN ×2 (01:49→21:24)
[2021-01-15] MEDS: INSULIN REGULAR, HUMAN 100 UNITS/ML VIAL SC SCH ×4 (07:03→21:18)
[2021-01-15] MEDS: LORATADINE 10 MG TABLET PEG SCH (08:00)
[2021-01-15] MEDS: CHOLECALCIFEROL 400 UNIT TABLET GT SCH (08:00)
[2021-01-15] MEDS: METOPROLOL TARTRATE 100 MG TABLET PEG SCH ×2 (08:00→21:20)
[2021-01-15] MEDS: DOXAZOSIN MESYLATE 2 MG TABLET GT SCH ×2 (08:00→21:19)
[2021-01-15] MEDS: glipiZIDE 10 MG TABLET PEG SCH (08:00)
[2021-01-15] MEDS: PANTOPRAZOLE SODIUM 20 MG TABLET.DR PO SCH ×2 (08:00→21:20)
[2021-01-15] MEDS: LEVOTHYROXINE SODIUM 50 MCG TABLET PEG SCH (08:00)
[2021-01-15] MEDS: THIAMINE HCL 100 MG TABLET PEG SCH (08:01)
[2021-01-15] MEDS: FLUTICASONE PROPIONATE 120 SPRAY INHALER NS PRN (08:01)
[2021-01-15] MEDS: ATROPINE SULFATE 50 DROP BTL SL PRN (14:04)
[2021-01-15] MEDS: LOSARTAN POTASSIUM 50 MG TABLET PEG SCH (21:19)
[2021-01-15] MEDS: SIMVASTATIN 40 MG TABLET PEG SCH (21:20)
[2021-01-15] MEDS: MELATONIN 3,000 MCG TABLET PEG SCH (21:20)
--- NOTE | 2021-01-15 23:13 | PN ---
Subjective - Date and Time Seen Date: 01/15/21 Time: 12:30 Subjective Narrative: Katie has had more secretions today than yesterday. She has worked with therapy and feels a little stronger. Having a poor day with secretions though. She is hesitant to use the atropine drops as she thought it made her nauseated. She also reports not liking the hospital CPAP machine. Her oxygen dropped to 70% while sleeping and rc quickly upon waking. Objective - Vitals Vitals: Last Vital Signs Temp 36.9 C 01/15/21 19:00 Pulse 86 01/15/21 21:20 Resp 18 01/15/21 19:00 BP 177/72 H 01/15/21 21:20 Pulse Ox 96 01/15/21 19:00 - Exam Constitutional: Present: Alert, Oriented x3, Cooperative ENT Exam: Present: hearing grossly normal Respiratory: Present: no respiratory distress, rhonchi Cardiovascular/Chest: Present: regular rate, rhythm, no murmur Abdomen: Present: soft, nontender, nondistended, hypoactive Skin Exam: Present: normal color, warm/dry, no cyanosis Eye contact: Present: cooperative, good eye contact, normal speech Thoughts: Present: normal thought pattern, no apparent hallucination Assessment/Plan Plan Narrative: Still waiting on placement for SNF. She is having a poor secretions day and she agreed to try one drop of the atropine today to see if it will help. She also has nocturnal hypoxia witness. She does not like the hospital CPAP so will not do that tonight and just use oxygen via nasal canula. Otherwise fairly medically stable and ok to discharge to SNF for strengthening. - Problems/Diagnosis (1) Achalasia Problem: Chronic (2) Acute on chronic diastolic CHF (congestive heart failure) Problem: Resolved (3) Nocturnal hypoxia Problem: Acute
[2021-01-16] MEDS: PANTOPRAZOLE SODIUM 20 MG TABLET.DR PO SCH ×2 (07:37→21:03)
[2021-01-16] MEDS: INSULIN REGULAR, HUMAN 100 UNITS/ML VIAL SC SCH ×4 (07:37→20:57)
[2021-01-16] MEDS: LEVOTHYROXINE SODIUM 50 MCG TABLET PEG SCH (07:38)
[2021-01-16] MEDS: DOXAZOSIN MESYLATE 2 MG TABLET GT SCH ×2 (09:02→20:59)
[2021-01-16] MEDS: LORATADINE 10 MG TABLET PEG SCH (09:03)
[2021-01-16] MEDS: glipiZIDE 10 MG TABLET PEG SCH (09:03)
[2021-01-16] MEDS: CHOLECALCIFEROL 400 UNIT TABLET GT SCH (09:03)
[2021-01-16] MEDS: METOPROLOL TARTRATE 100 MG TABLET PEG SCH ×2 (09:03→21:01)
[2021-01-16] MEDS: THIAMINE HCL 100 MG TABLET PEG SCH (09:03)
[2021-01-16] MEDS: LOSARTAN POTASSIUM 50 MG TABLET PEG SCH (21:00)
[2021-01-16] MEDS: MELATONIN 3,000 MCG TABLET PEG SCH (21:02)
[2021-01-16] MEDS: SIMVASTATIN 40 MG TABLET PEG SCH (21:04)
--- NOTE | 2021-01-16 23:40 | PN ---
Subjective - Date and Time Seen Date: 01/16/21 Time: 11:30 Subjective Narrative: Katie does not like the atropine drops and felt it makes the secretions stickier. She did sleep better and thought the oxygen at night did well. No fever, chills. Still waiting on SNF placement. Objective - Vitals Vitals: Last Vital Signs Temp 36.9 C 01/16/21 18:20 Pulse 88 01/16/21 21:01 Resp 20 01/16/21 18:20 BP 164/93 H 01/16/21 21:01 Pulse Ox 92 L 01/16/21 18:20 - Exam Constitutional: Present: Alert, Oriented x3, Cooperative ENT Exam: Present: hearing grossly normal Respiratory: Present: lungs clear, decreased breath sounds Cardiovascular/Chest: Present: regular rate, rhythm Abdomen: Present: Normal bowel sounds, soft, nontender, nondistended Skin Exam: Present: normal color, warm/dry, no cyanosis Appearance: Present: appropriate appearance, appropriate insight Eye contact: Present: cooperative, good eye contact, normal speech Thoughts: Present: normal thought pattern, no apparent hallucination Assessment/Plan Plan Narrative: Medically stable, remains weak. Looking for SNF discharge for strengthening. She has nocturnal hypoxia and has felt better with oxygen at night. - Problems/Diagnosis (1) Achalasia Problem: Chronic (2) Acute on chronic diastolic CHF (congestive heart failure) Problem: Resolved (3) Nocturnal hypoxia Problem: Acute
[2021-01-17] MEDS: PANTOPRAZOLE SODIUM 20 MG TABLET.DR PO SCH (07:39)
[2021-01-17] MEDS: LEVOTHYROXINE SODIUM 50 MCG TABLET PEG SCH (07:39)
[2021-01-17] MEDS: INSULIN REGULAR, HUMAN 100 UNITS/ML VIAL SC SCH (07:40)
[2021-01-17] MEDS: METOPROLOL TARTRATE 100 MG TABLET PEG SCH (08:53)
[2021-01-17] MEDS: THIAMINE HCL 100 MG TABLET PEG SCH (08:54)
[2021-01-17] MEDS: CHOLECALCIFEROL 400 UNIT TABLET GT SCH (08:54)
[2021-01-17] MEDS: LORATADINE 10 MG TABLET PEG SCH (08:54)
[2021-01-17] MEDS: DOXAZOSIN MESYLATE 2 MG TABLET GT SCH (08:54)
[2021-01-17] MEDS: glipiZIDE 10 MG TABLET PEG SCH (08:54)
--- NOTE | 2021-01-17 09:17 | DS ---
(1) Acute on chronic diastolic CHF (congestive heart failure) Problem: Resolved (2) Achalasia Problem: Chronic (3) Nocturnal hypoxia Problem: Acute (4) Obstructive sleep apnea Problem: Chronic Date of Discharge:: 01/17/21 Hospital Course: Katie is an 89 yo female admitted for acute on chronic diastolic CHF with weakness and dyspnea. She has a complicated history of achlasia and is completely dependent on tube feeds with nothing NPO. She has difficulty with oral secretions. She was admitted to inpatient and diuresed with lasix. She was consulted with PT, OT, and ST and has been working to get stronger. I have tried oral atropine drops to help with the secretions as these are contributing to her dyspnea. She did not like how these made her feel. She was noted to be hypoxic with sleep and was placed on oxygen at 2lpm while sleeping. She did well with this and prefers this over her CPAP use. Discussed SNF for further strengthening vs hospice but she would like to work on getting stronger. She worked well with therapies here and made improvement. Will discharge her to SNF with PT, OT, ST. She will continue using 2lpm of oxygen at night. Procedures Performed: none Results and Findings: Lab Pending Results 01/11/21 21:29: WBC 6.1, RBC 3.28 L, Hgb 10.4 L, Hct 32.4 L, MCV 98.8, MCH 31.7 H, MCHC 32.1, RDW 12.3, Plt Count 199, MPV 10.8, Immature Gran % (Auto) 0.20, Immature Gran # (Auto) 0.01, Neutrophils % 76.3 H, Lymphocytes % 9.2 L, Monocytes % 11.3 H, Eosinophils % 2.5, Basophils % 0.5, Nucleated RBC % 0.0, Neutrophils # 4.7, Lymphocytes # 0.56 L, Monocytes # 0.7, Eosinophils # 0.2, Absolute Basophils 0.0 01/11/21 21:29: Sodium 139, Plasma Sodium 140, Potassium 3.9, Chloride 102, Carbon Dioxide 31.2, Anion Gap 9.7, BUN 68 H, Creatinine 1.37, Est GFR (Non-Af Amer) 39 L, BUN/Creatinine Ratio 49.6 H, Random Glucose 177 H, Calcium 10.1, Calcium Adj for Albumin 10.3 H, Total Bilirubin 0.4, AST 17, ALT 16 L, Alkaline Phosphatase 82, Troponin I 0.019, B-Natriuretic Peptide 5466 H, Total Protein 7.0, Albumin 3.3 L 01/11/21 23:00: SARS-CoV-2 (PCR) Not detected 01/12/21 14:30: Troponin I 0.022 01/13/21 06:19: Sodium 139, Plasma Sodium 140, Potassium 4.7 H D, Chloride 104, Carbon Dioxide 30.5, Anion Gap 9.2, BUN 66 H, Creatinine 1.35, Est GFR (Non-Af Amer) 39 L, BUN/Creatinine Ratio 48.9 H, Random Glucose 154 H, Calcium 9.9, Calcium Adj for Albumin 10.5 H, Total Bilirubin 0.3, AST 17, ALT 14 L, Alkaline Phosphatase 70, Total Protein 6.3, Albumin 2.8 L Discharge Location: Other - [facility] Disposition: SNF Condition: Fair Level of Care: SNF Discharge Activity: Activity as tolerated Discharge Diet: Tube Feedings - Osmolite 1.2 5 cans per day, patient able to spread this out as needed. Tube feedings by gravity with 60ml water flush before and after each feeding Fci Therapy: Physical Therapy, Occupation Therapy, Speech Therapy Referrals: [facility] [Non Staff Physicians] - (Will follow with the facility physician prn) Problem Oriented Discharge Instructions to Patient/Family: CHF Patient Instructions Additional Patient Instructions (free text): SNF to [place], [place] for PT and OT and ST to evaluate and treat. Complete Home Medications List: Complete Home Medication List: Blood Sugar Diagnostic, Drum [Accu-Chek Compact Plus Strips] 1 ea MC DAILY 05/10/15 Melatonin [Melatin] 3 mg PEG HS 05/10/15 polyethylene glycol 3350 17 gram/dose oral powder 17 g PEG DAILY PRN 09/14/19 blood sugar diagnostic See Dose Instructions .ROUTE .MEDSUPPLY #100 ea 07/04/20 lancets 28 gauge See Dose Instructions .ROUTE .MEDSUPPLY #100 ea 07/04/20 fluticasone propionate 50 mcg/actuation nasal spray,suspension 1 spray PATRICIA Q12H PRN #16 g 07/08/20 glycopyrrolate 1 mg tablet 1 mg FEEDING TUBE BID #180 tab 08/05/20 doxazosin 4 mg tablet 6 mg FEEDING TUBE BID #270 tab 08/08/20 furosemide 40 mg tablet 40 mg FEEDING TUBE BID PRN #180 tab 10/14/20 thiamine HCl (vitamin B1) 100 mg tablet 100 mg FEEDING TUBE DAILY #100 tab 12/09/20 cholecalciferol (vitamin D3) 10 mcg/mL (400 unit/mL) oral drops 15 mcg FEEDING TUBE DAILY #50 ml 12/13/20 Acetaminophen [Tylenol] 650 mg PEG Q6H PRN 01/01/21 Calcium Carbonate [Tums] 500 mg PEG DAILY 01/01/21 Loratadine 10 mg PEG DAILY 01/01/21 glipiZIDE [Glipizide] 10 mg PEG DAILY 01/01/21 Irbesartan 300 mg PEG HS 01/11/21 Levothyroxine Sodium [Synthroid] 50 mcg PEG DAILY 01/11/21 Metoprolol Tartrate 100 mg PEG BID 01/11/21 Simvastatin 40 mg PEG HS 01/11/21 Forms: Patient Portal Registration
[2021-01-17 12:52] VITALS: BP 151/69
== END 2021-01-17 12:59 | DRG 291 ==
LOC: MS 20:48 → ER 20:48 → OBSVTOIN 01-12 00:04 → MS 01-12 00:25
PROVIDERS: ADMIT Family Medicine; ATTEND Family Medicine
DX: R09.02 Hypoxemia; G47.33 Obstructive sleep apnea (adult) (pediatric); R13.10 Dysphagia, unspecified; N18.30 Chronic kidney disease, stage 3 unspecified; I11.0 Hypertensive heart disease with heart failure; I50.33 Acute on chronic diastolic (congestive) heart failure; K22.0 Achalasia of cardia; E78.5 Hyperlipidemia, unspecified; I16.0 Hypertensive urgency; Z93.1 Gastrostomy status; E11.22 Type 2 diabetes mellitus with diabetic chronic kidney disease; I13.0 Hypertensive heart and chronic kidney disease with heart failure and stage 1 through stage 4 chronic kidney disease, or unspecified chronic kidney disease; Z79.4 Long term (current) use of insulin